=== PATIENT | female | born 1995 | race Caucasian/White ===

== ENCOUNTER 2016-03-10 09:08 | Outpatient (CLI) | payer BC | END 2016-03-10 09:09 | disposition home or self-care (01) | DX: Z00.00 Encounter for general adult medical examination without abnormal findings (principal) ==

== ENCOUNTER 2017-03-16 08:00 | Outpatient (CLI) | payer BC ==
[2017-03-16 17:47] LABS: BASOPHILS # (AUTO) 0.1 10^3/uL (0.0-0.1); BASOPHILS % (AUTO) 0.8 %; EOSINOPHILS # (AUTO) 0.1 10^3/uL (0.0-0.7); EOSINOPHILS % (AUTO) 2.2 %; HGB - HEMOGLOBIN 13.6 g/dL (12.0-16.0); LYMPHOCYTES # (AUTO) 1.4 10^3/uL (1.5-3.5); LYMPHOCYTES % (AUTO) 22.2 %; MEAN CORPUSCULAR HEMOGLOBIN 31.5 pg (27.0-31.0); MEAN CORPUSCULAR HGB CONC 33.6 g/dL (32.0-36.0); MEAN CORPUSCULAR VOLUME 93.8 fL (81.0-99.0); MEAN PLATELET VOLUME 8.7 fL (7.9-10.8); MONOCYTES # (AUTO) 0.7 10^3/uL (0.0-1.0); MONOCYTES % (AUTO) 11.1 %; NEUTROPHILS # (AUTO) 4.1 10^3/uL (1.5-6.6); NEUTROPHILS % (AUTO) 63.7 %; PLT - PLATELET COUNT 197 10^3/uL (130-450); RED BLOOD COUNT 4.31 10^6/uL (4.20-5.40); RED CELL DISTRIBUTION WIDTH 12.6 % (12.0-15.0); WHITE BLOOD COUNT 6.5 x10^3/uL (4.8-10.8)
[2017-03-16 18:09] LABS: ALBUMIN 4.3 g/dL (3.2-5.5); ALBUMIN/GLOBULIN RATIO 1.3 (1.0-2.2); ALKALINE PHOSPHATASE 41 IU/L (42-121); ALT ALANINE AMINOTRANSFERASE 15 IU/L (10-60); AST ASPARTATE AMINOTRANSFERASE 21 IU/L (10-42); BILIRUBIN,TOTAL 0.5 mg/dL (0.2-1.0); BUN - BLOOD UREA NITROGEN 16 mg/dL (6-20); CALCIUM 9.1 mg/dL (8.5-10.3); CARBON DIOXIDE - CO2 26 mmol/L (21-32); CHLORIDE 102 mmol/L (101-111); CHOLESTEROL 219 mg/dL; CREATININE 0.5 mg/dL (0.4-1.0); GFR - MDRD 152 (>89); GLUCOSE 69 mg/dL (70-100); HDL CHOLESTEROL 72 mg/dL; LDL CHOLESTEROL,CALCULATED 132 mg/dL; LDL/HDL RATIO 1.8 (<4.4); SODIUM 137 mmol/L (135-145); TOTAL PROTEIN 7.7 g/dL (6.7-8.2); VLDL CHOLESTEROL 15 mg/dL
== END 2017-03-16 08:01 ==
LOC: LAB.R 08:00
PROVIDERS: ATTEND Physician Assistant Medical
DX: Z00.00 Encounter for general adult medical examination without abnormal findings (principal)
CPT/HCPCS: 80053; 80061; 84443; 85025

== ENCOUNTER 2018-06-27 15:32 | Outpatient (CLI) | payer BC ==
--- NOTE | 2018-06-28 08:25 | Ultrasound Report ---
Reason: PELVIC PAIN Procedure Date: 06/27/2018 Accession Number: [id number] / [id number] Procedure: US - Pelvic w/Transvaginal CPT Code: FULL RESULT: EXAM: PELVIC ULTRASOUND EXAM DATE: 06/27/2018 03:38 PM. CLINICAL HISTORY: Pain. COMPARISON: PELV 08/01/2007 2:13 PM. TECHNIQUE: Real-time transabdominal pelvic scan performed to identify the uterus and adnexa and as an overview of other pelvic structures, followed by transvaginal scan to provide greater detail of the uterus and adnexa, with static image documentation. FINDINGS: Uterus: 5.9 x 2.2 x 3.8 cm, volume 25.8 cc. Anteverted position. Normal overall size and echotexture. Masses: None. Endometrium: 2.6 mm. Normal. Cervix: Unremarkable. Right Ovary: 2.7 x 1.6 x 2.7 cm, volume 6.1 cc. Normal echotexture and blood flow. Left Ovary: 2.1 x 1.5 x 2.6 cm, volume 4.3 cc. Normal echotexture and blood flow. Free Fluid: None. Other: None. IMPRESSION: Normal pelvic ultrasound. RADIA
== END 2018-06-27 15:33 | disposition home or self-care (01) ==
LOC: DI 15:32
PROVIDERS: ATTEND Nurse Practitioner Obstetrics & Gynecology
DX: R10.2 Pelvic and perineal pain (principal)
CPT/HCPCS: 76830; 76856

== ENCOUNTER 2018-07-02 08:00 | Outpatient (CLI) | payer BC ==
[2018-07-02 12:45] LABS: BASOPHILS # (AUTO) 0.1 10^3/uL (0.0-0.1); BASOPHILS % (AUTO) 1.2 %; EOSINOPHILS # (AUTO) 0.1 10^3/uL (0.0-0.7); EOSINOPHILS % (AUTO) 1.6 %; LYMPHOCYTES # (AUTO) 1.6 10^3/uL (1.5-3.5); LYMPHOCYTES % (AUTO) 33.5 %; MEAN CORPUSCULAR HEMOGLOBIN 31.9 pg (27.0-31.0); MEAN CORPUSCULAR HGB CONC 33.7 g/dL (32.0-36.0); MEAN CORPUSCULAR VOLUME 94.6 fL (81.0-99.0); MEAN PLATELET VOLUME 8.2 fL (7.9-10.8); MONOCYTES # (AUTO) 0.4 10^3/uL (0.0-1.0); MONOCYTES % (AUTO) 7.4 %; NEUTROPHILS # (AUTO) 2.7 10^3/uL (1.5-6.6); NEUTROPHILS % (AUTO) 56.3 %; PLT - PLATELET COUNT 224 10^3/uL (130-450); RED BLOOD COUNT 4.38 10^6/uL (4.20-5.40); RED CELL DISTRIBUTION WIDTH 12.5 % (12.0-15.0); WHITE BLOOD COUNT 4.8 x10^3/uL (4.8-10.8)
[2018-07-02 14:12] LABS: ALBUMIN 4.7 g/dL (3.2-5.5); ALBUMIN/GLOBULIN RATIO 1.6 (1.0-2.2); BILIRUBIN,TOTAL 0.8 mg/dL (0.2-1.0); CALCIUM 9.7 mg/dL (8.5-10.3); CREATININE 0.6 mg/dL (0.4-1.0); TOTAL PROTEIN 7.7 g/dL (6.7-8.2)
[2018-07-02 14:43] LABS: HB2 TOTAL 15.3 g/dL; HEMOGLOBIN A1C 0.39 g/dL; HEMOGLOBIN A1C % 4.5 % (4.6-6.2)
== END 2018-07-02 23:59 | disposition home or self-care (01) ==
LOC: LAB.WCP 08:00
PROVIDERS: ATTEND Physician Assistant
DX: R53.83 Other fatigue (principal); B37.3 Candidiasis of vulva and vagina
CPT/HCPCS: 36415; 80053; 83036; 84443; 85025

== ENCOUNTER 2018-07-11 15:05 | Outpatient (CLI) | payer BC | END 2018-07-11 23:59 | disposition home or self-care (01) | LOC: LAB.R 15:05 | PROVIDERS: ATTEND Obstetrics & Gynecology | DX: A56.09 Other chlamydial infection of lower genitourinary tract (principal) | CPT/HCPCS: 87491; 87591 ==

== ENCOUNTER 2019-03-27 08:00 | Outpatient (CLI) | payer SELFPAY ==
[2019-03-27 22:09] LABS: TRICHOMONAS VAGINALIS DNA NEGATIVE (NEGATIVE)
== END 2019-03-27 23:59 | disposition home or self-care (01) ==
LOC: LAB.R 08:00
PROVIDERS: ATTEND Nurse Practitioner Obstetrics & Gynecology
DX: Z11.3 Encounter for screening for infections with a predominantly sexual mode of transmission (principal)
CPT/HCPCS: 87491; 87591; 87661

== ENCOUNTER 2020-06-04 10:37 | Outpatient (CLI) | payer OTHER ==
[2020-06-09 11:30] LABS: CHLAMYDIA TRACHOMATIS DNA NEGATIVE (NEGATIVE); NEISSERIA GONORRHOEAE DNA NEGATIVE (NEGATIVE); TRICHOMONAS VAGINALIS DNA NEGATIVE (NEGATIVE)
== END 2020-06-04 23:59 | disposition home or self-care (01) ==
LOC: LAB.WCP 10:37
PROVIDERS: ATTEND Physician Assistant Medical
DX: Z20.2 Contact with and (suspected) exposure to infections with a predominantly sexual mode of transmission (principal)
CPT/HCPCS: 87491; 87591; 87661

== ENCOUNTER 2022-02-01 08:00 | Outpatient (CLI) | payer BC, OTHER ==
[2022-02-01 12:19] LABS: BILIRUBIN,URINE NEGATIVE (NEGATIVE); GLUCOSE, URINE (UA) NEGATIVE (NEGATIVE); KETONES,URINE (UA) NEGATIVE (NEGATIVE); LEUKOCYTE ESTERASE, URINE NEGATIVE (NEGATIVE); NITRITE,URINE NEGATIVE (NEGATIVE); OCCULT BLOOD,URINE NEGATIVE (NEGATIVE); PH,URINE 6.5 PH (5.0-7.5); PROTEIN,URINE NEGATIVE (NEGATIVE); UROBILINOGEN,URINE 0.2 (NORMAL) E.U./dL (NORMAL)
[2022-02-01 12:22] LABS: CLARITY,URINE CLEAR (CLEAR)
[2022-02-01 12:34] LABS: BACTERIA,URINE Few /HPF (None Seen); CRYSTALS,URINE 3-5 Calcium Oxalate /LPF; RBC,URINE None Seen /HPF (0-5); SQUAMOUS EPITHELIAL CELL,UR MOD Squamous (<= Few); WBC,URINE 0-3 /HPF (0-5)
== END 2022-02-01 23:59 | disposition home or self-care (01) ==
LOC: LAB.WC 08:00
PROVIDERS: ATTEND Nurse Practitioner
DX: Z34.90 Encounter for supervision of normal pregnancy, unspecified, unspecified trimester (principal)
CPT/HCPCS: 81001; 87086

== ENCOUNTER 2022-02-14 18:13 | Outpatient (CLI) | payer BC ==
--- NOTE | 2022-02-15 14:31 | Ultrasound Report ---
PROCEDURE: OB First Trimester w/TV INDICATIONS: POSITIVE TEST OUTSIDE/PRIOR DATING DATA: Last menstrual period (LMP): 02/14/2022. LMP-based estimated date of delivery (CHARITY): 09/23/2022. First dating scan (date and location): 02/14/2022. Estimated date of delivery (CHARITY) from first dating scan: 09/27/2022. The below data below was generated using the ultrasound CHARITY of 09/27/2022 TECHNIQUE: Real-time scanning was performed of the fetus and maternal pelvic organs, with image documentation. Endovaginal scanning was also performed to better visualize the fetus and maternal ovaries. COMPARISON: None. FINDINGS: Gestational sac in the uterine fundus containing a fetus with crown-rump length of 1.5 cm; gestational age estimated seven weeks six days. heart rate 173 bpm. Ovaries normal. Left corpu s luteum cyst noted. IMPRESSION: Sheikh intrauterine with estimated gestational age 7 weeks 6 days. Reviewed by: Coy Booth MD on 02/15/2022 2:29 PM PST Approved by: Coy Booth MD on 02/15/2022 2:29 PM PST Station ID: [id number]
== END 2022-02-14 18:14 | disposition home or self-care (01) ==
LOC: DI 18:13
PROVIDERS: ATTEND Nurse Practitioner
DX: Z34.91 Encounter for supervision of normal pregnancy, unspecified, first trimester (principal)

== ENCOUNTER 2022-03-03 08:00 | Outpatient (CLI) | payer BC ==
[2022-03-04 17:24] LABS: CHLAMYDIA TRACHOMATIS DNA NEGATIVE (NEGATIVE); NEISSERIA GONORRHOEAE DNA NEGATIVE (NEGATIVE); TRICHOMONAS VAGINALIS DNA NEGATIVE (NEGATIVE)
== END 2022-03-03 23:59 | disposition home or self-care (01) ==
LOC: LAB.WC 08:00
PROVIDERS: ATTEND Obstetrics & Gynecology
DX: Z11.3 Encounter for screening for infections with a predominantly sexual mode of transmission (principal)
CPT/HCPCS: 87491; 87591; 87661

== ENCOUNTER 2022-03-04 12:55 | Outpatient (CLI) | payer BC ==
[2022-03-04 13:11] LABS: BASOPHILS % (AUTO) 0.2 %; EOSINOPHILS # (AUTO) 0.1 10^3/uL (0.0-0.7); EOSINOPHILS % (AUTO) 0.5 %; HCT - HEMATOCRIT 36.5 % (37.0-47.0); HGB - HEMOGLOBIN 12.4 g/dL (12.0-16.0); LYMPHOCYTES # (AUTO) 1.9 10^3/uL (1.5-3.5); LYMPHOCYTES % (AUTO) 15.9 %; MEAN CORPUSCULAR HEMOGLOBIN 31.2 pg (27.0-31.0); MEAN CORPUSCULAR VOLUME 91.9 fL (81.0-99.0); MONOCYTES # (AUTO) 0.6 10^3/uL (0.0-1.0); MONOCYTES % (AUTO) 5.1 %; NEUTROPHILS # (AUTO) 9.3 10^3/uL (1.5-6.6); PLT - PLATELET COUNT 203 10^3/uL (130-450); RED BLOOD COUNT 3.97 10^6/uL (4.20-5.40); RED CELL DISTRIBUTION WIDTH 12.1 % (12.0-15.0); WHITE BLOOD COUNT 11.9 x10^3/uL (4.8-10.8)
[2022-03-05 06:09] LABS: RPR Non Reactive (Non Reactive)
[2022-03-05 07:10] LABS: HBsAG SCREEN Negative (Negative); HIV SCREEN 4TH GENERATION Non Reactive (Non Reactive)
[2022-03-05 08:10] LABS: HCV AB <0.1 s/co ratio (0.0-0.9); VARICELLA-ZOSTER AB IGG 1297 index (Immune >165)
== END 2022-03-04 12:56 | disposition home or self-care (01) ==
LOC: LAB 12:55
PROVIDERS: ATTEND Nurse Practitioner
DX: Z34.90 Encounter for supervision of normal pregnancy, unspecified, unspecified trimester (principal)
CPT/HCPCS: 36415; 85025; 86592; 86762; 86787; 86803; 86850; 86900; 86901; 87340; 87389

== ENCOUNTER 2022-03-28 09:57 | Outpatient (CLI) | payer BC | END 2022-03-28 09:58 | disposition home or self-care (01) | LOC: LAB 09:57 | PROVIDERS: ATTEND Obstetrics & Gynecology | DX: Z53.9 Procedure and treatment not carried out, unspecified reason (principal) ==

== ENCOUNTER 2022-05-11 18:48 | Outpatient (CLI) | payer BC ==
--- NOTE | 2022-05-12 12:21 | Ultrasound Report ---
PROCEDURE: OB Detailed Eval INDICATIONS: SUPERVISION OF NORMAL OUTSIDE/PRIOR DATING DATA: Last menstrual period (LMP): 12/17/2021. LMP-based estimated date of delivery (CHARITY): 09/23/2022. First dating scan (date and location): 02/14/2022. Estimated date of delivery (CHARITY) from first dating scan: 09/27/2022. The below data below was generated using the ultrasound CHARITY of 09/27/2022 TECHNIQUE: Real-time scanning was performed of the fetus, with image documentation and biometric measurements. Endovaginal scanning: Not performed COMPARISON: 02/14/2022 FINDINGS: General: A single living intrauterine gestation is present. Presentation: Vertex Placenta: Placental position is posterior, without previa. There is a marginal cord insertion measu ring 1.5 cm from the superior edge of the placenta. Additionally, there is a small succenturiate lobe measuring 3.7 x 1.1 x 3.5 cm along the anterior fundal wall. Amniotic fluid index: 14.9 cm, largest pocket is 4.9 cm. heart rate: 157 beats per minute. Maternal cervical canal: Closed and 4.4 cm long; normal length is 2.5 cm or more. biometrics: Biparietal diameter: 4.9 cm, 20 weeks, 6 days Head circumference: 17.6 cm, 20 weeks, 1 day Abdominal circumference: 14.9 cm, 20 weeks, 1 day Femur length: 3.2 cm, 20 weeks, 0 days Estimated gestational age from initial scan: 20 weeks, 1 day. Composite gestational age from present scan: 20 weeks, 2 days Estimated weight and percentile: 333 g, 44th percentile Measurement variability in biometric dating: +/- 10 days from 12-20 weeks gestation, +/- 2 weeks from 20-30 weeks gestation, +/- 3 weeks at 30 weeks gestation or later. Anatomic survey: Neuro: Given the position, intracranial structures are not well seen. Nuchal skin fold: Nuchal region is not well measured. Face: Suboptimal visualization of the facial features. Spine: No evidence for spina bifida. Heart: 4-chambered heart is present, with normal ventricular outflow tracts. Diaphragm: Diaphragm is intact. Stomach: Left-sided stomach is present. Kidneys: No hydronephrosis. Normal is less than 5 mm in 2nd trimester, less than 7 mm in 3rd trimester. Cord: 3 vessel cord has orthotopic insertion. Bladder: Normal in size. Extremities: All 4 extremities are visualized. IMPRESSION: 1. Single living intrauterine with appropriate and symmetric growth. 2. Intracranial structures and facial features are not well seen due to position. Follow-up in one week for reevaluation of these structures is recommended. 3. Small anterior fundal succenturiate lobe, and a mainly posterior placenta with a marginal cord ins ertion superiorly. Reviewed by: Zelda Barrera MD on 05/12/2022 12:20 PM PDT Approved by: Zelda Barrera MD on 05/12/2022 12:20 PM PDT Station ID: [id number]
== END 2022-05-11 18:49 | disposition home or self-care (01) ==
LOC: DI 18:48
PROVIDERS: ATTEND Nurse Practitioner
DX: Z34.92 Encounter for supervision of normal pregnancy, unspecified, second trimester (principal); Z36.89 Encounter for other specified antenatal screening

== ENCOUNTER 2022-05-23 09:50 | Outpatient (CLI) | payer BC ==
[2022-05-23 10:19] LABS: ALBUMIN 3.8 g/dL (3.2-5.5); ALBUMIN/GLOBULIN RATIO 1.3 (1.0-2.2); BILIRUBIN,TOTAL 0.4 mg/dL (0.2-1.0); CALCIUM 9.1 mg/dL (8.5-10.3); CREATININE 0.4 mg/dL (0.4-1.0); POTASSIUM 3.4 mmol/L (3.5-5.0); TOTAL PROTEIN 6.7 g/dL (6.7-8.2); URIC ACID 4.7 mg/dL (2.6-7.2)
[2022-05-23 10:20] LABS: CREATININE,URINE 44.7 mg/dL; PROTEIN/CREATININE RATIO,URINE 0.1 (<=0.2)
== END 2022-05-23 09:51 | disposition home or self-care (01) ==
LOC: LAB 09:50
PROVIDERS: ATTEND Obstetrics & Gynecology
DX: O16.9 Unspecified maternal hypertension, unspecified trimester (principal)
CPT/HCPCS: 36415; 80053; 82570; 84156; 84550

== ENCOUNTER 2022-06-01 11:18 | Outpatient (CLI) | payer BC ==
--- NOTE | 2022-06-01 16:51 | Ultrasound Report ---
PROCEDURE: OB F/U or Repeat INDICATIONS: SUPERVISION OF OUTSIDE/PRIOR DATING DATA: Last menstrual period (LMP): 12/17/2021. LMP-based estimated date of delivery (CHARITY): 09/23/2022. First dating scan (date and location): 02/14/2022. Estimated date of delivery (CHARITY) from first dating scan: 09/27/2022. TECHNIQUE: Real-time scanning was performed of the fetus, with image documentation and biometric measurements. Endovaginal scanning: No COMPARISON: 05/11/2022 FINDINGS: General: A single living intrauterine gestation is present. Presentation: Breech Placenta: Placental position is fundal, without previa. Amniotic fluid index: 11.6 cm, 15th percentile for gestational age. heart rate: 167 beats per minute. Maternal cervical canal: 4.3 cm long; normal length is 2.5 cm or more. Composite gestational age from present scan: 23 weeks 1 day Measurement variability in biometric dating: +/- 10 days from 12-20 weeks gestation, +/- 2 weeks from 20-30 weeks gestation, +/- 3 weeks at 30 weeks gestation or more. Other: Current survey of anatomy includes normal ventricle/CORD plexus, cisterna magna/cerebell um, face/lips/orbits, chest/diaphragm, stomach/abdomen, bilateral renal regions, and urinary bladder/ pelvis. IMPRESSION: 1. Single living intrauterine gestation. 2. Normal limited survey of anatomy as above. Reviewed by: Nyla Watt MD on 06/01/2022 4:50 PM PDT Approved by: Nyla Watt MD on 06/01/2022 4:50 PM PDT Station ID: [id number]
== END 2022-06-01 11:19 | disposition home or self-care (01) ==
LOC: DI 11:18
PROVIDERS: ATTEND Nurse Practitioner
DX: Z36.89 Encounter for other specified antenatal screening (principal); Z34.92 Encounter for supervision of normal pregnancy, unspecified, second trimester

== ENCOUNTER 2022-06-16 10:56 | Outpatient (CLI) | payer BC | END 2022-06-16 10:57 | disposition home or self-care (01) | LOC: LAB 10:56 | PROVIDERS: ATTEND Nurse Practitioner | DX: Z34.90 Encounter for supervision of normal pregnancy, unspecified, unspecified trimester (principal); Z36.89 Encounter for other specified antenatal screening | CPT/HCPCS: 36415; 82950 ==

== ENCOUNTER 2022-08-01 10:21 | Outpatient (CLI) | payer BC ==
--- NOTE | 2022-08-01 15:15 | Ultrasound Report ---
PROCEDURE: OB F/U or Repeat INDICATIONS: HYPERTENSION IN OUTSIDE/PRIOR DATING DATA: Last menstrual period (LMP): 12/17/2021. LMP-based estimated date of delivery (CHARITY): 09/15/2022. First dating scan (date and location): 02/14/2022. Estimated date of delivery (CHARITY) from first dating scan: 09/27/2022. The below data below was generated using the sonographic CHARITY of 09/27/2022 TECHNIQUE: Real-time scanning was performed of the fetus, with image documentation and biometric measurements. Endovaginal scanning: COMPARISON: 06/01/2022 FINDINGS: General: A single living intrauterine gestation is present. Presentation: Cephalic Placenta: Placental position is posterior, without previa. Amniotic fluid index: 10.3 cm, largest pocket is 3.2 cm, normal for gestational age. heart rate: 160 beats per minute. Maternal cervical canal: 3.5 cm long; normal length is 2.5 cm or more. biometrics: Biparietal diameter: 8.2 cm, 32 weeks 6 days Head circumference: 29.3 cm, 32 weeks 2 days Abdominal circumference: 26.9 cm, 31 weeks 0 days Femur length: 6.1 cm, 31 weeks 4 days Estimated gestational age from initial scan: 31 weeks 6 days. Composite gestational age from present scan: 32 weeks 0 days Estimated weight and percentile: 1767 g, 26th percentile Measurement variability in biometric dating: +/- 10 days from 12-20 weeks gestation, +/- 2 weeks from 20-30 weeks gestation, +/- 3 weeks at 30 weeks gestation or more. Other: Not applicable. IMPRESSION: 1. Single live intrauterine with appropriate growth since the prior study. 2. Estimated weight at the 26th percentile. 3. Normal amniotic fluid volume. Reviewed by: Zelda Barrera MD on 08/01/2022 3:14 PM PDT Approved by: Zelda Barrera MD on 08/01/2022 3:14 PM PDT Station ID: [id number]
== END 2022-08-01 10:22 | disposition home or self-care (01) ==
LOC: DI 10:21
PROVIDERS: ATTEND Obstetrics & Gynecology
DX: O16.9 Unspecified maternal hypertension, unspecified trimester (principal); Z3A.32 32 weeks gestation of pregnancy

== ENCOUNTER 2022-08-04 08:57 | Outpatient (CLI) | payer BC ==
[2022-08-04 09:18] VITALS: BP 133/74
--- NOTE | 2022-08-04 09:58 | PROCEDURE REPORT ---
- HPI Vital Signs Temperature 98.2 F 08/04/22 09:15 Heart Rate 115 H 08/04/22 09:15 Respiratory Rate 17 08/04/22 09:15 Blood Pressure 133/74 H 08/04/22 09:15 O2 Saturation 100 08/04/22 09:15 Temperature 98.2 F 08/04/22 09:15 Heart Rate 115 H 08/04/22 09:15 Respiratory Rate 17 08/04/22 09:15 Blood Pressure 133/74 H 08/04/22 09:15 O2 Saturation 100 08/04/22 09:15 If not protocol: Oxygen Flow, liters/minute - Results and Plan Plan: Patient is a 27-year-old G1, P0 at 32 weeks 6 days gestation here for scheduled NST. NST Performed 08/04/2022 NST Read 08/04/2022 FHT: 150 bpm baseline, moderate variability, accelerations present, no decelerations. Reactive NST [place]: Quiescent Diagnosis 32 weeks gestation Chronic hypertension Continue with twice weekly NST.
== END 2022-08-04 09:45 | disposition home or self-care (01) ==
LOC: WFO 08:57 → FBP 08:59 → WFO 09:45
PROVIDERS: ATTEND Obstetrics & Gynecology
DX: O16.3 Unspecified maternal hypertension, third trimester (principal); Z3A.32 32 weeks gestation of pregnancy
CPT/HCPCS: 59025

== ENCOUNTER 2022-08-08 09:08 | Outpatient (CLI) | payer BC ==
[2022-08-08 09:20] VITALS: BP 138/82
--- NOTE | 2022-08-08 09:50 | PROCEDURE REPORT ---
- HPI Diagnosis/Indication for NST: Pre- Hypertension Vital Signs Temperature 97.7 F 08/08/22 09:16 Heart Rate 104 H 08/08/22 09:16 Respiratory Rate 20 08/08/22 09:16 Blood Pressure 138/82 H 08/08/22 09:16 Temperature 97.7 F 08/08/22 09:16 Heart Rate 104 H 08/08/22 09:16 Respiratory Rate 20 08/08/22 09:16 Blood Pressure 138/82 H 08/08/22 09:16 O2 Saturation If not protocol: Oxygen Flow, liters/minute - NST Procedure NST Procedure Start Time 09:04 Stop Time 09:42 - Results and Plan Plan: Patient is a 27-year-old G1, P0 at 33 weeks 3 days gestation here for scheduled NST. NST Performed 08/08/2022 NST Read 08/08/2022 FHT: 145 bpm baseline, moderate variability, accelerations present, no decelerations. Reactive NST [place]: Quiescent Diagnosis 33 weeks gestation Chronic hypertension Continue with twice weekly NST.
== END 2022-08-08 09:54 | disposition home or self-care (01) ==
LOC: WFO 09:08 → FBP 09:10 → WFO 09:54
PROVIDERS: ATTEND Nurse Practitioner
DX: O10.913 Unspecified pre-existing hypertension complicating pregnancy, third trimester (principal); Z3A.33 33 weeks gestation of pregnancy
CPT/HCPCS: 59025; 99213

== ENCOUNTER 2022-08-09 19:20 | Outpatient (CLI) | payer BC ==
--- NOTE | 2022-08-10 13:00 | Ultrasound Report ---
PROCEDURE: OB Biophysical Profile INDICATIONS: HYPERTENSION OUTSIDE/PRIOR DATING DATA: Last menstrual period (LMP): 12/17/2021. LMP-based estimated date of delivery (CHARITY): 09/23/2022. First dating scan (date and location): 02/14/2022. Estimated date of delivery (CHARITY) from first dating scan: 09/27/2022. The below data below was generated using the ultrasound CHARITY of 09/27/2022 TECHNIQUE: Real-time scanning was performed of the fetus, with image documentation. Biophysical pro file was also obtained. COMPARISON: OB ultrasound 08/01/2022. FINDINGS: General: A single living intrauterine gestation is present. Presentation: Cephalic Placenta: Placental position is posterior, without previa. Amniotic fluid index: 13.2 cm, normal for gestational age. Largest pocket 4.1 cm. heart rate: 150 beats per minute. Maternal cervical canal: Not well seen. Estimated gestational age from initial scan: 33 weeks 0 days Measurement variability in biometric dating: +/- 10 days from 12-20 weeks gestation, +/- 2 weeks from 20-30 weeks gestation, +/- 3 weeks at 30 weeks gestation or later. Biophysical profile: Tone: 2 points. Movement: 2 points. Respiration: 2 points. Largest pocket of fluid: 2 points. Umbilical artery Doppler: S/D ratios 2.73; 2.92; 2.98. Preserved diastolic flow. Questionable sludge or stones in the gallbladder. IMPRESSION: 1. Sheikh living intrauterine at 33 weeks 0 days based on prior dating. Cephalic positio n. 2. Normal placenta and amniotic fluid. 3. Normal biophysical profile. Score 8 out of 8. Umbilical artery Doppler is within normal limits. 4. Questionable sludge or stones in the gallbladder. Reviewed by: Chevy Gutierrez MD on 08/10/2022 12:58 PM PDT Approved by: Chevy Gutierrez MD on 08/10/2022 12:58 PM PDT Station ID: [id number]
== END 2022-08-09 19:21 | disposition home or self-care (01) ==
LOC: DI 19:20
PROVIDERS: ATTEND Nurse Practitioner
DX: O10.913 Unspecified pre-existing hypertension complicating pregnancy, third trimester (principal); Z3A.33 33 weeks gestation of pregnancy

== ENCOUNTER 2022-08-11 09:00 | Outpatient (CLI) | payer BC ==
[2022-08-11 09:15] VITALS: BP 128/64
--- NOTE | 2022-08-11 09:19 | PROCEDURE REPORT ---
- HPI Vital Signs Temperature 98.2 F 08/11/22 09:05 Temperature 98.2 F 08/11/22 09:10 Heart Rate 112 H 08/11/22 09:10 Respiratory Rate 17 08/11/22 09:10 Blood Pressure 128/64 08/11/22 09:10 O2 Saturation 100 08/11/22 09:10 If not protocol: Oxygen Flow, liters/minute - NST Procedure NST Procedure Start Time 09:10 Stop Time 09:39 - Results and Plan Plan: Patient is a 27-year-old G1, P0 at 33 weeks 6 days gestation here for scheduled NST. NST Performed 08/11/2022 NST Read 08/11/2022 FHT: 145 bpm baseline, moderate variability, accelerations present, no decelerations. Reactive NST [place]: Quiescent Diagnosis 33 weeks gestation chronic hypertension Continue with twice weekly NST.
== END 2022-08-11 10:10 | disposition home or self-care (01) ==
LOC: WFO 09:00 → FBP 09:03 → WFO 10:10
PROVIDERS: ATTEND Obstetrics & Gynecology
DX: O16.3 Unspecified maternal hypertension, third trimester (principal); Z3A.33 33 weeks gestation of pregnancy
CPT/HCPCS: 59025

== ENCOUNTER 2022-08-15 10:30 | Outpatient (CLI) | payer BC ==
[2022-08-15 10:51] VITALS: BP 124/76
--- NOTE | 2022-08-15 11:14 | PROCEDURE REPORT ---
- HPI Diagnosis/Indication for NST: Gestational Hypertension Vital Signs Temperature 98.1 F 08/15/22 10:46 Heart Rate 117 H 08/15/22 10:46 Respiratory Rate 17 08/15/22 10:46 Blood Pressure 124/76 08/15/22 10:46 O2 Saturation 100 08/15/22 10:46 Temperature 98.1 F 08/15/22 10:49 Heart Rate 117 H 08/15/22 10:46 Respiratory Rate 17 08/15/22 10:46 Blood Pressure 124/76 08/15/22 10:46 O2 Saturation 100 08/15/22 10:46 If not protocol: Oxygen Flow, liters/minute - NST Procedure NST Procedure Start Time 09:10 Stop Time 10:05 34+ weeks NST for gestational hypertension 150, moderate variability, +accels, no decels Reactive NST - Results and Plan Plan: Reactive NST
== END 2022-08-15 11:15 | disposition home or self-care (01) ==
LOC: WFO 10:30 → FBP 10:33 → WFO 11:15
PROVIDERS: ATTEND Obstetrics & Gynecology Obstetrics
DX: O13.3 Gestational [pregnancy-induced] hypertension without significant proteinuria, third trimester (principal); Z3A.34 34 weeks gestation of pregnancy
CPT/HCPCS: 59025

== ENCOUNTER 2022-08-18 08:05 | Outpatient (CLI) | payer BC ==
[2022-08-18 08:22] VITALS: BP 121/69
--- NOTE | 2022-08-18 09:31 | PROCEDURE REPORT ---
- HPI Current EDU 09/23/22 Gestation 34 Weeks and 6 Days 1 Para 0 Vital Signs Temperature 98.2 F 08/18/22 08:16 Heart Rate 95 08/18/22 08:16 Respiratory Rate 16 08/18/22 08:16 Blood Pressure 121/69 08/18/22 08:16 O2 Saturation 100 08/18/22 08:16 Temperature 98.2 F 08/18/22 08:18 Heart Rate 95 08/18/22 08:16 Respiratory Rate 16 08/18/22 08:16 Blood Pressure 121/69 08/18/22 08:16 O2 Saturation 100 08/18/22 08:16 If not protocol: Oxygen Flow, liters/minute - NST Procedure NST Procedure Start Date 08/18/22 Start Time 08:12 Stop Time 08:45 Vibroacoustic Stimulation Used No Patient States Movement Yes - Results and Plan Plan: Patient is a 27-year-old G1, P0 at 34 weeks 6 days gestation here for scheduled NST. NST Performed 08/18/2022 NST Read 08/18/2022 FHT: 145 bpm baseline, moderate variability, accelerations present, no decelerations. Reactive NST [place]: Quiescent Diagnosis 34 weeks gestation Chronic hypertension Continue with twice-weekly NST.
== END 2022-08-18 08:50 | disposition home or self-care (01) ==
LOC: WFO 08:05 → FBP 08:07 → WFO 08:50
PROVIDERS: ATTEND Obstetrics & Gynecology
DX: O16.3 Unspecified maternal hypertension, third trimester (principal); Z3A.34 34 weeks gestation of pregnancy
CPT/HCPCS: 59025

== ENCOUNTER 2022-08-18 08:49 | Outpatient (CLI) | payer BC ==
--- NOTE | 2022-08-18 13:30 | Ultrasound Report ---
PROCEDURE: OB Biophysical Profile INDICATIONS: HYPERTENSION OUTSIDE/PRIOR DATING DATA: Last menstrual period (LMP): 12/17/2021. LMP-based estimated date of delivery (CHARITY): 09/15/2022. First dating scan (date and location): 02/14/2022. Estimated date of delivery (CHARITY) from first dating scan: 09/27/2022. TECHNIQUE: Real-time scanning was performed of the fetus, with image documentation. Biophysical pro file was also obtained. COMPARISON: 08/09/2022 FINDINGS: General: A single living intrauterine gestation is present. Presentation: Cephalic Placenta: Placental position is posterior, without previa. Amniotic fluid index: 10.2 cm, within normal limits for gestational age. heart rate: 153 beats per minute. Maternal cervical canal: 3.6 cm long; normal length is 2.5 cm or more. Estimated gestational age today is 34 weeks and 2 days. Biophysical profile: Tone: 2 points. Movement: 2 points. Respiration: 2 points. Largest pocket of fluid: 2 points. Umbilical artery Doppler: Within normal limits, measuring under 3 SD ratio. Hyperechoic focus in the gallbladder again seen. IMPRESSION: Sheikh at 34 weeks and 2 days. Normal BPP. Normal umbilical artery Doppler. Normal TALAT. Hyperechoic focus in the gallbladder again seen, consider follow-up. Reviewed by: Jose Marques MD on 08/18/2022 1:29 PM PDT Approved by: Jose Marques MD on 08/18/2022 1:29 PM PDT Station ID: [id number]
== END 2022-08-18 08:50 | disposition home or self-care (01) ==
LOC: DI 08:49
PROVIDERS: ATTEND Nurse Practitioner
DX: O16.3 Unspecified maternal hypertension, third trimester (principal); Z3A.34 34 weeks gestation of pregnancy

== ENCOUNTER 2022-08-22 08:00 | Outpatient (CLI) | payer BC | END 2022-08-22 23:59 | disposition home or self-care (01) | LOC: LAB.WC 08:00 | PROVIDERS: ATTEND Obstetrics & Gynecology | DX: Z36.85 Encounter for antenatal screening for Streptococcus B (principal) | CPT/HCPCS: 87797 ==

== ENCOUNTER 2022-08-22 09:53 | Outpatient (CLI) | payer BC ==
[2022-08-22 10:13] VITALS: BP 128/74
--- NOTE | 2022-08-22 10:59 | PROCEDURE REPORT ---
- HPI Diagnosis/Indication for NST: Pre- Hypertension Current EDU 09/23/22 Gestation 35 Weeks and 3 Days 1 Para 0 Vital Signs Temperature 97.9 F 08/22/22 10:01 Heart Rate 106 H 08/22/22 10:01 Respiratory Rate 18 08/22/22 10:01 Blood Pressure 128/74 08/22/22 10:01 Temperature 97.9 F 08/22/22 10:01 Heart Rate 106 H 08/22/22 10:01 Respiratory Rate 18 08/22/22 10:01 Blood Pressure 128/74 08/22/22 10:01 O2 Saturation If not protocol: Oxygen Flow, liters/minute - NST Procedure NST Procedure Start Date 08/22/22 Start Time 10:00 Stop Time 11:15 Patient States Movement Yes EFM: 150s, moderate variability, positive 15x15 accelerations, no decelerations [place]: no contractions NST reactive/Cat 1 Performed and read 08/22/22 - Results and Plan Findings/Impression: 27yo at 35.4w presenting for scheduled NST for chronic hypertension - CHTN controlled with nifedipine - NST reactive - Follow up as scheduled
== END 2022-08-22 10:45 | disposition home or self-care (01) ==
LOC: WFO 09:53 → FBP 09:55 → WFO 10:45
PROVIDERS: ATTEND Obstetrics & Gynecology
DX: O10.913 Unspecified pre-existing hypertension complicating pregnancy, third trimester (principal); Z3A.35 35 weeks gestation of pregnancy; Z79.899 Other long term (current) drug therapy
CPT/HCPCS: 59025

== ENCOUNTER 2022-08-25 08:02 | Outpatient (CLI) | payer BC ==
[2022-08-25 08:21] VITALS: BP 120/67
--- NOTE | 2022-08-26 08:21 | PROCEDURE REPORT ---
- HPI Diagnosis/Indication for NST: Other (Chronic hypertension) Current EDU 09/23/22 Gestation 35 Weeks and 6 Days 1 Para 0 Vital Signs Temperature 97.7 F 08/25/22 08:13 Heart Rate 100 08/25/22 08:13 Respiratory Rate 16 08/25/22 08:13 Blood Pressure 120/67 08/25/22 08:13 Temperature 97.7 F 08/25/22 08:13 Heart Rate 100 08/25/22 08:13 Respiratory Rate 16 08/25/22 08:13 Blood Pressure 120/67 08/25/22 08:13 O2 Saturation If not protocol: Oxygen Flow, liters/minute - NST Procedure NST Procedure Start Date 08/25/22 Start Time 08:11 Stop Time 08:37 Vibroacoustic Stimulation Used No Patient States Movement Yes EFM: 150s, moderate variability, positive 15x15 accelerations, no decelerations [place]: no contractions NST reactive/Cat 1 Performed and read 08/25/22 - Results and Plan Findings/Impression: 27yo at 36w presenting for scheduled NST for chronic hypertension - Controlled with nifedipine - NST reactive - Follow up as scheduled
== END 2022-08-25 08:40 | disposition home or self-care (01) ==
LOC: WFO 08:02 → FBP 08:07 → WFO 08:40
PROVIDERS: ATTEND Obstetrics & Gynecology
DX: O10.919 Unspecified pre-existing hypertension complicating pregnancy, unspecified trimester (principal); O35.9XX0 Maternal care for (suspected) fetal abnormality and damage, unspecified, not applicable or unspecified; Z3A.35 35 weeks gestation of pregnancy; Z79.899 Other long term (current) drug therapy
CPT/HCPCS: 59025

== ENCOUNTER 2022-08-25 08:42 | Outpatient (CLI) | payer BC ==
--- NOTE | 2022-08-25 17:06 | Ultrasound Report ---
PROCEDURE: OB Biophysical Profile INDICATIONS: HYPERTENSION OUTSIDE/PRIOR DATING DATA: Last menstrual period (LMP): 12/17/2021. LMP-based estimated date of delivery (CHARITY): 09/15/2022. First dating scan (date and location): 02/14/2022. Estimated date of delivery (CHARITY) from first dating scan: 09/27/2022. TECHNIQUE: Real-time scanning was performed of the fetus, with image documentation. Biophysical pro file was also obtained. Endovaginal scanning: Not performed. COMPARISON: OB ultrasound 08/18/2022. FINDINGS: General: A single living intrauterine gestation is present. Presentation: Cephalic Placenta: Placental position is posterior, without previa. Amniotic fluid index: 9.0 cm, 9th percentile for gestational age. Single deepest vertical fluid pocket is 3.6 cm. heart rate: 164 beats per minute. Maternal cervical canal: Not well visualized. Estimated gestational age from initial scan: 35 weeks 2 days. Biophysical profile: Tone: 2 points. Movement: 2 points. Respiration: 2 points. Largest pocket of fluid: 2 points. Umbilical artery Doppler: Systolic/diastolic ratio is 2.6 at the placental cord insertion, 2.7 at th e midportion, and 3.2 at the cord insertion. IMPRESSION: 1.Single live intrauterine . 2.Biophysical profile score 8 of 8. 3.Mildly elevated systolic/diastolic ratio of 3.2 at the cord insertion. Reviewed by: Neftali Ramos MD on 08/25/2022 5:05 PM PDT Approved by: Neftali Ramos MD on 08/25/2022 5:05 PM PDT Station ID: [id number]
== END 2022-08-25 08:43 | disposition home or self-care (01) ==
LOC: DI 08:42
PROVIDERS: ATTEND Nurse Practitioner
DX: O10.919 Unspecified pre-existing hypertension complicating pregnancy, unspecified trimester (principal); Z3A.00 Weeks of gestation of pregnancy not specified

== ENCOUNTER 2022-08-25 08:42 | Outpatient (CLI) | payer BC ==
--- NOTE | 2022-08-29 12:02 | Ultrasound Report ---
PROCEDURE: OB F/U or Repeat INDICATIONS: ABNORMALITY OUTSIDE/PRIOR DATING DATA: Last menstrual period (LMP): 12/17/2021. LMP-based estimated date of delivery (CHARITY): 09/15/2022. First dating scan (date and location): 02/14/2022. Estimated date of delivery (CHARITY) from first dating scan: 09/27/2022. TECHNIQUE: Real-time scanning was performed of the fetus, with image documentation. Biophysical profi le was also obtained. Endovaginal scanning: Not performed. All images for this exam associated with accession number [id number] COMPARISON: OB ultrasound 08/18/2022. FINDINGS: General: A single living intrauterine gestation is present. Presentation: Cephalic Placenta: Placental position is posterior, without previa. Amniotic fluid index: 9.0 cm, 9th percentile for gestational age. Single deepest vertical fluid pocket is 3.6 cm. heart rate: 164 beats per minute. Maternal cervical canal: Not well visualized. Estimated gestational age from initial scan: 35 weeks 2 days. Biophysical profile: Tone: 2 points. Movement: 2 points. Respiration: 2 points. Largest pocket of fluid: 2 points. Umbilical artery Doppler: Systolic/diastolic ratio is 2.6 at the placental cord insertion, 2.7 at the midportion, and 3.2 at the cord insertion. IMPRESSION: 1.Single live intrauterine . 2.Biophysical profile score 8 of 8. 3.Mildly elevated systolic/diastolic ratio of 3.2 at the cord insertion. Reviewed by: Neftali Ramos MD on 08/29/2022 12:01 PM PDT Approved by: Neftali Ramos MD on 08/29/2022 12:01 PM PDT Station ID: [id number]
== END 2022-08-25 08:43 | disposition home or self-care (01) ==
LOC: DI 08:42
PROVIDERS: ATTEND Nurse Practitioner
DX: O35.9XX0 Maternal care for (suspected) fetal abnormality and damage, unspecified, not applicable or unspecified (principal); Z3A.35 35 weeks gestation of pregnancy

== ENCOUNTER 2022-08-29 09:49 | Outpatient (CLI) | payer BC ==
[2022-08-29 10:13] VITALS: BP 114/72
--- NOTE | 2022-08-29 13:03 | PROCEDURE REPORT ---
- HPI Diagnosis/Indication for NST: Pre- Hypertension Current EDU 09/23/22 Gestation 36 Weeks and 3 Days 1 Para 0 Vital Signs Temperature 98.4 F 08/29/22 10:04 Heart Rate 99 08/29/22 10:04 Respiratory Rate 16 08/29/22 10:04 Blood Pressure 114/72 08/29/22 10:04 Temperature 98.4 F 08/29/22 10:40 Heart Rate 99 08/29/22 10:40 Respiratory Rate 16 08/29/22 10:40 Blood Pressure 114/72 08/29/22 10:40 O2 Saturation If not protocol: Oxygen Flow, liters/minute - NST Procedure NST Procedure Start Date 08/29/22 Start Time 09:57 Stop Time 10:35 Vibroacoustic Stimulation Used No Patient States Movement Yes NST with baseline 150. + acels. no decels. reactive. reviewed by me. - Results and Plan Findings/Impression: reactive NST Plan: continue care as scheduled.
== END 2022-08-29 10:40 | disposition home or self-care (01) ==
LOC: WFO 09:49 → FBP 09:54 → WFO 10:40
PROVIDERS: ATTEND Obstetrics & Gynecology
DX: O10.913 Unspecified pre-existing hypertension complicating pregnancy, third trimester (principal); Z3A.36 36 weeks gestation of pregnancy
CPT/HCPCS: 59025

== ENCOUNTER 2022-09-01 08:03 | Outpatient (CLI) | payer BC ==
[2022-09-01 08:29] VITALS: BP 113/62
--- NOTE | 2022-09-01 08:37 | PROCEDURE REPORT ---
- HPI Diagnosis/Indication for NST: Pre- Hypertension Current EDU 09/23/22 Gestation 36 Weeks and 6 Days 1 Para 0 Vital Signs Temperature 98.1 F 09/01/22 08:19 Heart Rate 90 09/01/22 08:19 Respiratory Rate 14 09/01/22 08:19 Blood Pressure 113/62 09/01/22 08:19 Temperature 98.1 F 09/01/22 08:19 Heart Rate 90 09/01/22 08:19 Respiratory Rate 14 09/01/22 08:19 Blood Pressure 113/62 09/01/22 08:19 O2 Saturation If not protocol: Oxygen Flow, liters/minute - NST Procedure NST Procedure Start Date 09/01/22 Start Time 08:15 Stop Time 10:35 Patient States Movement Yes - Results and Plan Plan: Patient is a 27-year-old G1, P0 at 36 weeks 6 days gestation here for scheduled NST. NST Performed 09/01/2022 NST Read 09/01/2022 FHT: 140 bpm baseline, moderate variability, accelerations present, no decelerations. Reactive NST [place]: Quiescent Diagnosis 36 weeks gestation Chronic hypertension Continue with twice-weekly NST.
== END 2022-09-01 09:05 | disposition home or self-care (01) ==
LOC: WFO 08:03 → FBP 08:09 → WFO 09:05
PROVIDERS: ATTEND Obstetrics & Gynecology
DX: O10.913 Unspecified pre-existing hypertension complicating pregnancy, third trimester (principal); Z3A.36 36 weeks gestation of pregnancy
CPT/HCPCS: 59025

== ENCOUNTER 2022-09-01 09:08 | Outpatient (CLI) | payer BC ==
--- NOTE | 2022-09-01 20:33 | Ultrasound Report ---
PROCEDURE: OB Biophysical Profile INDICATIONS: HYPERTENSION OUTSIDE/PRIOR DATING DATA: Last menstrual period (LMP): 12/17/2021. LMP-based estimated date of delivery (CHARITY): 09/23/2022. First dating scan (date and location): 02/14/2022. Estimated date of delivery (CHARITY) from first dating scan: 09/27/2022. The below data below was generated using the working CHARITY of 09/27/2022 TECHNIQUE: Real-time scanning was performed of the fetus, with image documentation and biometric renato surements. Biophysical profile was also obtained. COMPARISON: OB ultrasound, 08/25/2022. FINDINGS: General: A single living intrauterine gestation is present. Presentation: Cephalic Placenta: Placental position is posterior, without previa. Amniotic fluid index: 9.6 cm; largest pocket 3.6 cm. heart rate: 152 beats per minute. Maternal cervical canal: Not visualized. biometrics: Biparietal diameter: 36 weeks 2 days Head circumference: 35 weeks 6 days Abdominal circumference: 34 weeks 4 days Femur length: 35 weeks 0 day Estimated gestational age from initial scan: 36 weeks 2 days. Composite gestational age from present scan: 35 weeks 3 days Estimated weight and percentile: 2557 g; 19.2% Measurement variability in biometric dating: +/- 10 days from 12-20 weeks gestation, +/- 2 weeks from 20-30 weeks gestation, +/- 3 weeks at 30 weeks gestation or later. Biophysical profile: Tone: 2 points. Movement: 2 points. Respiration: 2 points. Largest pocket of fluid: 2 points. IMPRESSION: 1. A single living IUP with appropriate interval growth. 2. biophysical profile score 8 out of 8. Reviewed by: Gilmar Ham MD on 09/01/2022 8:32 PM PDT Approved by: Gilmar Ham MD on 09/01/2022 8:32 PM PDT Station ID: [id number]
--- NOTE | 2022-09-02 08:17 | Ultrasound Report ---
PROCEDURE: OB F/U or Repeat INDICATIONS: CHRONIC HTN OUTSIDE/PRIOR DATING DATA: Last menstrual period (LMP): 12/17/2021. LMP-based estimated date of delivery (CHARITY): 09/23/2022. First dating scan (date and location): 02/14/2022. Estimated date of delivery (CHARITY) from first dating scan: 09/27/2022. The below data below was generated using the working CHARITY of 09/27/2022 TECHNIQUE: Real-time scanning was performed of the fetus, with image documentation and biometric measurements. Endovaginal scanning: Not performed. COMPARISON: OB ultrasound, 08/25/2022. FINDINGS: General: A single living intrauterine gestation is present. Presentation: Cephalic Placenta: Placental position is posterior, without previa. Amniotic fluid index: 9.6 cm; largest pocket 3.6 cm. heart rate: 152 beats per minute. Maternal cervical canal: Not visualized. biometrics: Biparietal diameter: 36 weeks 2 days Head circumference: 35 weeks 6 days Abdominal circumference: 34 weeks 4 days Femur length: 35 weeks 0 day Estimated gestational age from initial scan: 36 weeks 2 days. Composite gestational age from present scan: 35 weeks 3 days Estimated weight and percentile: 2557 g; 19.2% Measurement variability in biometric dating: +/- 10 days from 12-20 weeks gestation, +/- 2 weeks from 20-30 weeks gestation, +/- 3 weeks at 30 weeks gestation or later. Biophysical profile: Tone: 2 points. Movement: 2 points. Respiration: 2 points. Largest pocket of fluid: 2 points. Cord Doppler ultrasound: S/D at the placental cord insertion: 2.35. S/D at the mid cord: 2.20. S/D at the cord insertion: 2.64. Normal values less than 3.49 (95th percentile) for 35 weeks gestational age. IMPRESSION: 1. A single living IUP with appropriate interval growth. 2. The estimated weight is 19.2% for gestational age. 3. TALAT 9.6 cm. Reviewed by: Gilmar Ham MD on 09/02/2022 8:16 AM PDT Approved by: Gilmar Ham MD on 09/02/2022 8:16 AM PDT Station ID: [id number]
== END 2022-09-01 09:09 | disposition home or self-care (01) ==
LOC: DI 09:08
PROVIDERS: ATTEND Nurse Practitioner
DX: O10.919 Unspecified pre-existing hypertension complicating pregnancy, unspecified trimester (principal); Z3A.35 35 weeks gestation of pregnancy

== ENCOUNTER 2022-09-08 08:02 | Outpatient (CLI) | payer BC ==
[2022-09-08 08:27] VITALS: BP 111/68
--- NOTE | 2022-09-08 08:52 | PROCEDURE REPORT ---
- HPI Current EDU 09/23/22 Gestation 37 Weeks and 6 Days 1 Para 0 Vital Signs Temperature 98.2 F 09/08/22 08:11 Heart Rate 99 09/08/22 08:11 Respiratory Rate 16 09/08/22 08:11 Blood Pressure 111/68 09/08/22 08:11 O2 Saturation 100 09/08/22 08:11 Temperature 98.2 F 09/08/22 08:15 Heart Rate 99 09/08/22 08:15 Respiratory Rate 16 09/08/22 08:15 Blood Pressure 111/68 09/08/22 08:15 O2 Saturation 100 09/08/22 08:11 If not protocol: Oxygen Flow, liters/minute - NST Procedure NST Procedure Start Date 09/08/22 Start Time 08:20 Stop Time 08:42 Vibroacoustic Stimulation Used No Patient States Movement Yes - Results and Plan Plan: Patient is a 27-year-old G1, P0 at 37 weeks 6 days gestation here for scheduled NST. NST Performed 09/08/2022 NST Read 09/08/2022 FHT: 145 bpm baseline, moderate variability, accelerations present, no decelerations. Reactive NST [place]: Quiescent Diagnosis 37 weeks gestation Chronic hypertension Continue with twice-weekly NST.
== END 2022-09-08 08:47 | disposition home or self-care (01) ==
LOC: WFO 08:02 → FBP 08:03 → WFO 08:47
PROVIDERS: ATTEND Obstetrics & Gynecology
DX: O16.9 Unspecified maternal hypertension, unspecified trimester (principal); Z3A.37 37 weeks gestation of pregnancy
CPT/HCPCS: 59025

== ENCOUNTER 2022-09-12 09:52 | Outpatient (CLI) | payer BC ==
[2022-09-12 10:14] VITALS: BP 109/66
--- NOTE | 2022-09-12 11:10 | PROCEDURE REPORT ---
- HPI Diagnosis/Indication for NST: Pre- Hypertension Current EDU 09/23/22 Gestation 38 Weeks and 3 Days 1 Para 0 Vital Signs Temperature 97.7 F 09/12/22 09:58 Heart Rate 97 09/12/22 09:58 Respiratory Rate 16 09/12/22 09:58 Blood Pressure 109/66 09/12/22 09:58 Temperature 97.7 F 09/12/22 09:58 Heart Rate 97 09/12/22 09:58 Respiratory Rate 16 09/12/22 09:58 Blood Pressure 109/66 09/12/22 09:58 O2 Saturation If not protocol: Oxygen Flow, liters/minute - NST Procedure NST Procedure Start Date 09/12/22 Start Time 10:00 Stop Time 08:42 Patient States Movement Yes 38 weeks reactive NST - Results and Plan Findings/Impression: Reactive NST
== END 2022-09-12 11:00 | disposition home or self-care (01) ==
LOC: WFO 09:52 → FBP 09:54 → WFO 11:00
PROVIDERS: ATTEND Obstetrics & Gynecology Obstetrics
DX: O10.913 Unspecified pre-existing hypertension complicating pregnancy, third trimester (principal); Z3A.38 38 weeks gestation of pregnancy
CPT/HCPCS: 59025

== ENCOUNTER 2022-09-16 08:13 | Inpatient (IN) | payer BC ==
[2022-09-16] MEDS ORDERED: miSOPROStoL 200 MCG TABLET PR PRN ×2 (09:04→16:20)
[2022-09-16] MEDS ORDERED: METHYLERGONOVINE 0.2 MG/ML VIAL IM PRN ×2 (09:04→16:19)
[2022-09-16] MEDS ORDERED: fentaNYL 100 MCG/2 ML VIAL IVP PRN (09:04)
[2022-09-16] MEDS ORDERED: TERBUTALINE 1 MG/ML VIAL SUBQ PRN ×2 (09:04→16:18)
[2022-09-16] MEDS ORDERED: lidocaine 1% 20 ML MDV ID PRN ×2 (09:04→16:21)
[2022-09-16] MEDS ORDERED: TRANEXAMIC ACID IN NACL 1,000 MG/100 ML BAG IV PRN ×2 (09:04→16:20)
[2022-09-16] MEDS ORDERED: OXYTOCIN 10 UNIT/ML VIAL IM PRN ×2 (09:04→16:21)
[2022-09-16] MEDS ORDERED: miSOPROStoL 200 MCG TABLET BC PRN ×2 (09:04→16:20)
[2022-09-16] MEDS ORDERED: OXYTOCIN/SODIUM CHLORIDE 500 ML IV PRN (09:04)
[2022-09-16] MEDS ORDERED: CARBOPROST TROMETHAMINE 250 MCG/ML AMP IM PRN ×2 (09:04→16:19)
[2022-09-16] MEDS ORDERED: ceFAZolin 2 GM in SODIUM CHLORIDE 0.9% MINIBAG 100 ML IV ONE ×2 (09:04→18:00)
[2022-09-16] MEDS ORDERED: SODIUM CHLORIDE FLUSH 0.9% 10 ML SYRINGE IVP PRN ×2 (09:04→16:19)
[2022-09-16 09:18] LABS: BASOPHILS % (AUTO) 0.3 %; EOSINOPHILS # (AUTO) 0.1 10^3/uL (0.0-0.7); EOSINOPHILS % (AUTO) 0.6 %; HCT - HEMATOCRIT 37.5 % (37.0-47.0); HGB - HEMOGLOBIN 12.9 g/dL (12.0-16.0); LYMPHOCYTES # (AUTO) 1.9 10^3/uL (1.5-3.5); LYMPHOCYTES % (AUTO) 14.7 %; MEAN CORPUSCULAR HEMOGLOBIN 32.5 pg (27.0-31.0); MEAN CORPUSCULAR HGB CONC 34.4 g/dL (32.0-36.0); MEAN CORPUSCULAR VOLUME 94.5 fL (81.0-99.0); MEAN PLATELET VOLUME 9.8 fL (7.9-10.8); MONOCYTES # (AUTO) 0.9 10^3/uL (0.0-1.0); MONOCYTES % (AUTO) 6.8 %; NEUTROPHILS # (AUTO) 9.8 10^3/uL (1.5-6.6); NEUTROPHILS % (AUTO) 76.8 %; PLT - PLATELET COUNT 197 10^3/uL (130-450); RED BLOOD COUNT 3.97 10^6/uL (4.20-5.40); RED CELL DISTRIBUTION WIDTH 13.1 % (12.0-15.0); WHITE BLOOD COUNT 12.8 x10^3/uL (4.8-10.8)
--- NOTE | 2022-09-16 09:28 | HISTORY & PHYSICAL EXAMINATION ---
Admit History - Visit Reason Visit Reason: Other - : 1 Parity: 0 Care: positive: [facility] Risk/History: positive: Other (Chronic hypertension) Smoking Status: Never smoker - Mother's Labs Mother's Blood Type: positive: A Mother's RH: positive: Positive GBS: positive: Group B Strep Positive Rubella Status: positive: Immune - Other Maternal History Other Maternal History: Med: IBS Surg: [place] teeth 2014 Social: , denies tabatha Fam: noncontributory - HPI Diagnosis/Indication for NST: Gestational Hypertension (Direct admission for IOL, NST not done) Current EDU 09/23/22 Gestation 39 Weeks and 0 Days 1 Vital Signs Temperature 98.6 F 09/16/22 08:56 Heart Rate 105 H 09/16/22 08:56 Respiratory Rate 18 09/16/22 08:56 Blood Pressure 125/87 H 09/16/22 08:56 Temperature 98.6 F 09/16/22 08:56 Heart Rate 105 H 09/16/22 08:56 Respiratory Rate 18 09/16/22 08:56 Blood Pressure 125/87 H 09/16/22 08:56 O2 Saturation If not protocol: Oxygen Flow, liters/minute - NST Procedure NST Procedure Start Time 10:00 Stop Time 10:59 Meds/Allgy - Allergies Allergies/Adverse Reactions: Allergies Allergy/AdvReac Type Severity Reaction Status Date / Time Penicillins Allergy Hives Verified 09/05/22 11:32 Physical - Abdominal Exam Vital Signs: Temp Pulse Resp BP Pulse Ox O2 Flow Rate 98.6 F 105 H 18 125/87 H 09/16/22 08:56 09/16/22 08:56 09/16/22 08:56 09/16/22 08:56 Contraction Frequency (min/apart): 10 Contraction Intensity: positive: Mild Uterine Resting Tone: positive: Soft - Monitoring Heart Rate Baseline: 140 Strip Review: positive: Category I - Presentation Presentation: positive: Vertex (3000g, placenta fundal with succenturiate lobe) - Vaginal Exam Dilation (in cm): 0 Effacement (%): 50 Station: positive: -3 Cervical Position: positive: Posterior Plan for Labor - Plan For Labor I expect patient to be DC'd or transferred within 96 hours.: Yes Plan for Labor: 27yo at 39w admitted for scheduled IOL for chronic hypertension, controlled - Admit, T&S, CBC, CMP, MTP - Misoprostol 50mcg q4-6h - Plan for Pitocin - Cat 1, continue to monitor - Plan for GBS prophylaxis in active labor complicated by chronic hypertension controlled with nifedipine, succenturiate placenta, GBS pos
[2022-09-16 09:30] LABS: ALBUMIN 3.7 g/dL (3.2-5.5); ALBUMIN/GLOBULIN RATIO 1.3 (1.0-2.2); BILIRUBIN,TOTAL 0.4 mg/dL (0.2-1.0); CALCIUM 9.5 mg/dL (8.5-10.3); CREATININE 0.5 mg/dL (0.6-1.3); POTASSIUM 3.7 mmol/L (3.5-4.5); TOTAL PROTEIN 6.6 g/dL (6.4-8.9)
[2022-09-16] MEDS ORDERED: miSOPROStoL 100 MCG TABLET BC SCH (10:00)
[2022-09-16] MEDS ORDERED: LACTATED RINGERS 1,000 ML IV SCH (10:00)
[2022-09-16] MEDS ORDERED: SODIUM CHLORIDE FLUSH 0.9% 10 ML SYRINGE IVP SCH (10:00)
[2022-09-16] MEDS ORDERED: OXYTOCIN/SODIUM CHLORIDE 500 ML IV SCH ×2 (10:00→17:00)
[2022-09-16 10:35] LABS: CREATININE,URINE 30.1; TOTAL PROTEIN,URINE TIMED > 2000 mg/dL
[2022-09-16 10:41] LABS: PROTEIN/CREATININE RATIO,URINE 13.3 (<=0.2)
[2022-09-16] MEDS: miSOPROStoL 100 MCG TABLET BC SCH (16:21)
[2022-09-16] MEDS ORDERED: ceFAZolin 1 GM in SODIUM CHLORIDE 0.9% MINIBAG 100 ML IV SCH (18:00)
[2022-09-16] MEDS ORDERED: DOXYLAMINE 25 MG TABLET PO PRN (20:29)
--- NOTE | 2022-09-16 20:29 | PROVIDER PROGRESS NOTE ---
Labor Progress Note - Uterine Monitoring Uterine Monitoring Mode: positive: External toco Contraction Frequency (min/apart): 2 Contraction Intensity: positive: Mild to moderate Uterine Resting Tone: positive: Soft - Monitoring Monitor Mode: positive: External ultrasound Heart Rate Baseline: 150 Heart Rate Variability: positive: Moderate (6-25 bmp) Accelerations: positive: Present, 15x15 Decelerations: positive: None Strip Review: positive: Category I - Vaginal Exam Dilation (in cm): 3 Effacement (%): 80 Station: -2 Cervical Position: Midposition - Labor Progress Note Labor Progress Note/Additional Text: 27yo at 39w admitted for scheduled IOL for chronic hypertension, controlled - Received misoprostol 50mcg x2 - Plan for Pitocin 2200 - Start cefazolin after Pitocin starts - Plan for AROM when active labor
[2022-09-16] MEDS: LACTATED RINGERS 1,000 ML IV SCH (22:23)
[2022-09-16] MEDS: SODIUM CHLORIDE FLUSH 0.9% 10 ML SYRINGE IVP SCH (22:24)
[2022-09-16] MEDS: fentaNYL 100 MCG/2 ML VIAL IVP PRN (23:01)
[2022-09-17] MEDS: fentaNYL 100 MCG/2 ML VIAL IVP PRN ×2 (01:26→03:33)
[2022-09-17] MEDS: LACTATED RINGERS 1,000 ML IV SCH ×4 (03:49→13:54)
[2022-09-17] MEDS ORDERED: ROPIVACAINE 0.2% 200 MG/100 ML BAG EP ONE (04:10)
[2022-09-17] MEDS ORDERED: SODIUM CHLORIDE 0.9% 10 ML VIAL IVP ONE (04:42)
[2022-09-17] MEDS ORDERED: fentaNYL 100 MCG/2 ML VIAL ONE (04:42)
[2022-09-17] MEDS ORDERED: ePHEDrine 50 MG/ML VIAL IVP PRN (04:44)
[2022-09-17] MEDS ORDERED: NALOXONE 0.4 MG/ML VIAL IVP PRN (04:44)
[2022-09-17] MEDS ORDERED: ROPIVACAINE 0.2% 200 MG/100 ML BAG EP PRN (04:44)
--- NOTE | 2022-09-17 04:44 | ANESTHESIA ---
Pre-Anesthesia VS, & Labs - Diagnosis active labor - Procedure vaginal delivery Vital Signs: Temp Pulse Resp BP Pulse Ox O2 Flow Rate 37.0 C 105 H 18 125/87 H 09/16/22 08:56 09/16/22 08:56 09/16/22 08:56 09/16/22 08:56 Height: 5 ft 7 in Weight (kg): 81.647 kg Body Mass Index: 28.1 BMI Classification: Overweight - NPO Last Fluid Intake: clear liquids - Is Patient ?: Yes - Lab Results Current Lab Results: Laboratory Tests 09/16/22 09:00: Sodium 137, Potassium 3.7, Chloride 106, Carbon Dioxide 21, Anion Gap 10.0, BUN 10, Creatinine 0.5 L, Estimated GFR (MDRD) 146, Glucose 103, Calcium 9.5, Total Bilirubin 0.4, AST 14, ALT 10, Alkaline Phosphatase 107, Total Protein 6.6, Albumin 3.7, Globulin 2.9, Albumin/Globulin Ratio 1.3 09/16/22 09:00: WBC 12.8 H, RBC 3.97 L, Hgb 12.9, Hct 37.5, MCV 94.5, MCH 32.5 H , MCHC 34.4, RDW 13.1, Plt Count 197, MPV 9.8, Neut # (Auto) 9.8 H, Lymph # (Auto) 1.9, [place] # (Auto) 0.9, Eos # (Auto) 0.1, Baso # (Auto) 0.0, Absolute Nucleated RBC 0.00, Nucleated RBC % 0.0 09/16/22 09:00: Blood Type A POSITIVE, Antibody Screen NEGATIVE Lab results reviewed: Yes Fish Bones: 09/16/22 09:00 09/16/22 09:00 Home Medications and Allergies Active Medications Carboprost Tromethamine (Carboprost Tromethamine 250 Mcg/Ml Amp) 250 mcg IM .ONCE PRN PRN Reason: Hemorrhage Doxylamine Succinate (Doxylamine 25 Mg Tablet) 25 mg PO QPM PRN PRN Reason: Insomnia Last Admin: 09/16/22 22:37 Dose: 25 mg Fentanyl (Fentanyl 100 Mcg/2 Ml Vial) 50 mcg IVP Q1H PRN PRN Reason: Severe Pain (score 7-10) Last Admin: 09/17/22 03:33 Dose: 50 mcg Oxytocin/Sodium Chloride (Pitocin/Sodium Chloride) 500 mls @ 999 mls/hr IV PRN PRN; Protocol PRN Reason: POST- HEMORR PREVENTION Tranexamic Acid (Tranexamic 1,000 Mg/100ml-Nacl) 1,000 mg in 100 mls @ 600 mls/hr IV Q30M PRN PRN Reason: EBL >1200mL and within 3hr Lactated Ringer's (Lr) 1,000 mls @ 125 mls/hr IV .Q8H [facility] Last Admin: 09/17/22 03:49 Dose: 125 mls/hr Oxytocin/Sodium Chloride (Pitocin/Sodium Chloride) 500 mls @ 1 mls/hr IV TITR YANIV; Protocol Last Titration: 09/17/22 03:04 Dose: 9 milliunit/min, 9 mls/hr Cefazolin Sodium 1 gm/ Sodium (Chloride) 100 mls @ 200 mls/hr IV Q8H [facility] Lidocaine HCl (Lidocaine 1% 20 Ml Mdv) 20 ml ID .ONCE PRN PRN Reason: PERINEAL REPAIR Methylergonovine Maleate (Methylergonovine 0.2 Mg/Ml Vial) 0.2 mg IM .ONCE PRN PRN Reason: Hemorrhage Misoprostol (Misoprostol 100 Mcg Tablet) 50 mcg BC Q4H [facility] Stop: 09/17/22 09:01 Last Admin: 09/16/22 16:21 Dose: 50 mcg Misoprostol (Misoprostol 200 Mcg Tablet) 600 mcg BC .ONCE PRN PRN Reason: Hemorrhage Misoprostol (Misoprostol 200 Mcg Tablet) 800 mcg [place] .ONCE PRN PRN Reason: Hemorrhage Oxytocin (Oxytocin 10 Unit/Ml Vial) 10 unit IM .ONCE PRN PRN Reason: Step One if no IV access. Sodium Chloride (Sodium Chloride Flush 0.9% 10 Ml Syringe) 10 ml IVP PRN PRN PRN Reason: NEEDED PER PROVIDER ORDERS Sodium Chloride (Sodium Chloride Flush 0.9% 10 Ml Syringe) 10 ml IVP Q8H [facility] Last Admin: 09/16/22 22:24 Dose: 10 ml Terbutaline Sulfate (Terbutaline 1 Mg/Ml Vial) 0.25 mg SUBQ .ONCE PRN PRN Reason: Tachystole Allergies/Adverse Reactions: Allergies Allergy/AdvReac Type Severity Reaction Status Date / Time Penicillins Allergy Hives Verified 09/05/22 11:32 Anes History & Medical History - Anesthetic History Family history of Anesthesia Complications: Denies Family history of Malignant Hyperthermia: Denies - Medical History Cardiovascular: reports: Hypertension Pulmonary: reports: None Gastrointestinal: reports: None Urinary: reports: None Neuro: reports: None Musculoskeletal: reports: None Endocrine/Autoimmune: reports: None Blood Disorders: reports: None Skin: reports: None Smoking Status: Never smoker Psychosocial: reports: No issues indicated History of Cancer?: No - Obstetrical History : 1 Parity: 0 Events: reports: Other (Chronic hypertension) Complications: reports: Other (succenturiate placenta) Exam General: Alert, Oriented x3, Cooperative, No acute distress Dental: WNL Mouth Openin Fingerbreadth Neck Mobility: Normal Mallampati classification: II Thyromental Distance: 4-6 cm Mental/Cognitive Status: Alert/Oriented X3, Normal for patient Plan Anesthesia Type: Epidural Consent for Procedure(s) Verified and Reviewed: Yes Code Status: Attempt Resuscitation ASA classification: 2-Mild systemic disease Is this case an emergency?: No
[2022-09-17] MEDS ORDERED: LIDOCAINE-PF 2% 10 ML AMP SUBQ ONE (04:54)
[2022-09-17 06:40] LABS: CREATININE,URINE 68.9 mg/dL; PROTEIN/CREATININE RATIO,URINE 0.1 (<=0.2)
--- NOTE | 2022-09-17 06:47 | PROVIDER PROGRESS NOTE ---
Labor Progress Note - Uterine Monitoring Uterine Monitoring Mode: positive: External toco Contraction Frequency (min/apart): 2 Contraction Intensity: positive: Moderate Uterine Resting Tone: positive: Soft - Monitoring Monitor Mode: positive: External ultrasound Heart Rate Baseline: 150 Heart Rate Variability: positive: Moderate (6-25 bmp) Accelerations: positive: Present, 15x15 Decelerations: positive: None Strip Review: positive: Category I - Vaginal Exam Dilation (in cm): 10 Effacement (%): 100 Station: 1 - Labor Progress Note Labor Progress Note/Additional Text: 27yo at 39w admitted for IOL for chronic hypertension, controlled - Initial MTP was 13, repeat catheterized MTP sample 0.1, normal. Normotensive, no preeclampsia at this time. - Received 2 doses misoprostol 50mcg BC - Received cephazolin x1, q8 - Continue Pitocin, currently at 7mu - Nifedipine not ordered on admission as she has been normotensive - Cat 1, anticipate - Succenturiate lobe, ensure placenta intact
[2022-09-17] MEDS: miSOPROStoL 100 MCG TABLET BC SCH ×3 (07:24→07:26)
[2022-09-17] MEDS: SODIUM CHLORIDE FLUSH 0.9% 10 ML SYRINGE IVP SCH ×2 (07:25→10:33)
[2022-09-17] MEDS ORDERED: LEVONORGESTREL 20 MCG/24H IUD IY ONE ×2 (08:07→08:22)
[2022-09-17] MEDS: ceFAZolin 1 GM in SODIUM CHLORIDE 0.9% MINIBAG 100 ML IV SCH ×2 (09:10→13:03)
[2022-09-17] MEDS: OXYTOCIN/SODIUM CHLORIDE 500 ML IV PRN ×2 (10:30→11:02)
[2022-09-17 11:34] LABS: BASOPHILS # (AUTO) 0.1 10^3/uL (0.0-0.1); BASOPHILS % (AUTO) 0.3 %; EOSINOPHILS % (AUTO) 0.1 %; HCT - HEMATOCRIT 33.4 % (37.0-47.0); HGB - HEMOGLOBIN 11.2 g/dL (12.0-16.0); LYMPHOCYTES # (AUTO) 1.1 10^3/uL (1.5-3.5); LYMPHOCYTES % (AUTO) 5.1 %; MEAN CORPUSCULAR HEMOGLOBIN 32.5 pg (27.0-31.0); MEAN CORPUSCULAR HGB CONC 33.5 g/dL (32.0-36.0); MEAN CORPUSCULAR VOLUME 96.8 fL (81.0-99.0); MEAN PLATELET VOLUME 9.6 fL (7.9-10.8); MONOCYTES # (AUTO) 1.8 10^3/uL (0.0-1.0); MONOCYTES % (AUTO) 8.3 %; NEUTROPHILS # (AUTO) 18.2 10^3/uL (1.5-6.6); NEUTROPHILS % (AUTO) 85.5 %; PLT - PLATELET COUNT 158 10^3/uL (130-450); RED BLOOD COUNT 3.45 10^6/uL (4.20-5.40); WHITE BLOOD COUNT 21.3 x10^3/uL (4.8-10.8)
[2022-09-17] MEDS ORDERED: SIMETHICONE CHEW 80 MG TABLET PO PRN (12:18)
[2022-09-17 12:24] LABS: RBC MORPHOLOGY (MULTIPLE) NORMAL APPEARANCE (NORMAL); SLIDE REVIEW? Indicated
[2022-09-17 12:25] LABS: PLATELET ESTIMATE, MANUAL NORMAL (130-450,000) (NORMAL); PLATELET MORPHOLOGY NORMAL APPEARANCE (NORMAL)
--- NOTE | 2022-09-17 12:34 | DELIVERY NOTE ---
Delivery Note - Labor Labor: positive: Augmented by oxytocin - Delivery Method Delivery Method: positive: Spontaneous vaginal delivery - Cervical Ripening Method Cervical Ripening Method: positive: Misoprostil - Presentation Presentation: positive: OA - occiput anterior - Nuchal Cord Nuchal Cord: positive: None - Anesthetic Anesthetic Type: - Amniotic Fluid Description Amniotic Fluid Description: positive: Clear - Laceration Laceration: positive: 2nd degree, Labial (Bilateral), Perineal - Suture Suture Type: positive: Vicryl Suture Size: positive: 3-0 - Delivery Outcome Delivery Outcome: positive: Livebirth - [place] : positive: Placed in direct skin contact with mother [place] sex: positive: Female - Cord Cord: positive: 3 vessels - Placenta Placenta: positive: Intact - Estimated Blood Loss Estimated Blood Loss (in cc): 1,800 - Post Delivery Events Post Delivery Events: positive: Hemorrhage - Delivery Comments (Free Text/Narrative) Delivery Comments (Free Text/Narrative): Preoperative Diagnoses 39 weeks gestation Chronic hypertension GBS positive Accessory placental lobe Postoperative Diagnoses Same Status post [place] vaginal delivery Delivery of live peterson hemorrhage 27-year-old G1, P0 presented at 39 weeks for induction of labor secondary to chronic hypertension controlled with oral antihypertensives. She was started on misoprostol for cervical ripening then switch to oxytocin when favorable. She had spontaneous rupture of membranes with clear fluid. She was GBS positive with penicillin allergy and received 2 doses of cefazolin. She received an epidural for pain control. Second stage was longer than normal, but still within normal limits. Delivery Summary: Patient was placed in the dorsal lithotomy position and the bed was broken down. Upon maternal pushing the head was delivered atraumatically followed by the anterior shoulder, posterior shoulder, then the remainder of the infant's body. A female was delivered with APGARS of 8 at 1 minute and 9 at 5 minutes. The was placed on its mother's chest . After the cord finished pulsating, the umbilical cord was clamped times two and cut. The placenta delivered intact with three vessel cord. It appeared intact with an accessory lobe noted approximately 3 cm to the side of the main placental plate. An ultrasound was performed that showed a normal-appearing uterus with no apparent retained placenta and no significant Doppler blood flow within the uterus. Placenta was not sent to pathology. Thirty units of Pitocin were added to the IV fluid and allowed to run freely. At this point, an IUD was requested, so the Mirena IUD was removed from its package, strings were trimmed, and using a ring forcep, cyst placed to the uterine fundus using my opposite hand as a guide. The ring forcep was released moved to the side and removed from the vagina with string still in place. Uterine massage was performed until uterus was deemed firm. Upon inspection the perineum, she had a significant laceration including bilateral labia, a second-degree midline laceration, and a an extension into the perineum. This was a very difficult repair starting with the secondary portion of the vagina, the suture was carried in a running fashion down towards the perineum. The right sidewall was then closed with a separate suture. Attention was then turned to the left sidewall and the peritoneal extension was noted approximately 5 cm into the perineum. The apex was grasped with Allis clamps and a suture was thrown at the apex. This was gradually walked down with combination of the Allis clamps and sutures providing traction. To the difficulty of this, I called AYLEEN Gutierres to assist with labial retraction. This was carried down to the midline, the midline portion of the perineum was closed and somewhat above the level of the hymen to stop. Additional [id number] stitch was sewn had a bleeding portion of the sidewall. Due to concern for possible hematoma formation and the previously no ticed hemorrhage, vaginal packing was placed in addition to a Vazquez catheter under sterile conditions. Uterus again massaged and found to be firm. Needle and sponge counts were correct. Postrepair H/H was mildly down, but not significant. Vital signs were stable. Patient was stable and allowed to recover in L&D room. Infant was stable and remained in room with mother. weight: 3012 g.
[2022-09-17] MEDS: IBUPROFEN 600 MG TABLET PO SCH ×2 (13:03→18:42)
[2022-09-17] MEDS: ACETAMINOPHEN 500 MG TABLET PO SCH ×2 (13:03→21:21)
[2022-09-17] MEDS ORDERED: LACTATED RINGERS 1,000 ML IV ONE (13:49)
--- NOTE | 2022-09-17 16:52 | PROVIDER PROGRESS NOTE ---
Subjective - Prog Note Date Prog Note Date: 09/17/22 Prog Note Time: 16:49 - Subjective Pt reports feeling: Improved Subjective: And came to check on patient. Currently doing much better. She had a initial hemoglobin of 12.9 and follow-up hemoglobin of 11.2. I expect this to continue to fall as she equilibrates. Repeat pending approximately 1 hour. Vital signs are stable. She did have some vasovagal symptoms earlier concerning for acute blood loss anemia, but this has resolved. Currently sitting up and holding baby without issue. Vaginal packing remains in place and we will remove this later this evening. Can remove Vazquez catheter after she has packing removed and is able to ambulate without dizziness. Objective - Vital Signs/Intake & Output Vital Signs: Vital Signs x48h Temp Pulse Resp BP Pulse Ox 09/17/22 14:31 98 16 106/63 99 09/17/22 14:00 97 16 106/63 100 09/17/22 13:36 93 16 106/60 100 09/17/22 13:31 95 16 102/58 L 100 09/17/22 13:26 92 16 101/61 100 09/17/22 13:21 91 16 103/61 100 09/17/22 13:16 91 16 104/63 100 09/17/22 13:11 86 16 108/65 100 09/17/22 13:06 92 16 104/67 100 09/17/22 13:01 82 16 105/66 100 09/17/22 12:56 81 16 106/62 09/17/22 12:51 92 16 102/63 100 09/17/22 12:45 85 16 89/57 L 100 09/17/22 12:42 66 14 73/31 L 09/17/22 12:38 75 16 75/38 L 09/17/22 12:30 151 H 20 117/70 97 09/17/22 12:16 103 H 16 117/72 100 09/17/22 12:00 117 H 16 117/74 100 09/17/22 11:45 106 H 16 118/73 99 09/17/22 11:31 97 16 119/74 100 09/17/22 11:16 99 16 120/70 09/17/22 11:01 105 H 18 117/72 99 09/17/22 10:45 114 H 18 119/75 99 09/17/22 10:30 100.2 F 129 H 16 113/79 98 Intake & Output: Intake & Output 09/14/22 09/15/22 09/16/22 09/17/22 23:59 23:59 23:59 23:59 Intake Total 3.633 5337.149 Output Total 1345 Balance 3.633 3992.149 - Lab Results Fish Bones: 09/17/22 11:29 09/16/22 09:00 Other Labs: Lab Results x24hrs 09/17/22 09/17/22 09/16/22 Range/Units 11:29 05:40 09:00 WBC 21.3 H (4.8-10.8) x10^3/uL RBC 3.45 L (4.20-5.40) 10^6/uL Hgb 11.2 L (12.0-16.0) g/dL Hct 33.4 L (37.0-47.0) % MCV 96.8 (81.0-99.0) fL MCH 32.5 H (27.0-31.0) pg MCHC 33.5 (32.0-36.0) g/dL RDW 13.0 (12.0-15.0) % Plt Count 158 (130-450) 10^3/uL MPV 9.6 (7.9-10.8) fL Neut # (Auto) 18.2 H (1.5-6.6) 10^3/uL Lymph # (Auto) 1.1 L (1.5-3.5) 10^3/uL [place] # (Auto) 1.8 H (0.0-1.0) 10^3/uL Eos # (Auto) 0.0 (0.0-0.7) 10^3/uL Baso # (Auto) 0.1 (0.0-0.1) 10^3/uL Absolute Nucleated RBC 0.00 x10^3/uL Nucleated RBC % 0.0 /100WBC Manual Slide Review Indicated Platelet Estimate NORMAL (130-450,000) (NORMAL) Platelet Morphology NORMAL APPEARANCE (NORMAL) RBC Morph Micro Appear NORMAL APPEARANCE (NORMAL) Urine Creatinine 68.9 mg/dL Ur Total Protein Timed 9 mg/dL Protein/Creatinin Ratio 0.1 (<=0.2) Blood Type A POSITIVE Antibody Screen NEGATIVE Crossmatch IS Only See Detail
[2022-09-17 18:11] LABS: HCT - HEMATOCRIT 29.6 % (37.0-47.0); HGB - HEMOGLOBIN 10.1 g/dL (12.0-16.0)
[2022-09-17] MEDS ORDERED: oxyCODONE 5 MG TABLET PO PRN (19:19)
[2022-09-17] MEDS: DOCUSATE SODIUM 100 MG CAPSULE PO PRN (21:21)
[2022-09-18] MEDS: IBUPROFEN 600 MG TABLET PO SCH ×4 (04:52→22:29)
[2022-09-18 04:54] LABS: BASOPHILS # (AUTO) 0.1 10^3/uL (0.0-0.1); BASOPHILS % (AUTO) 0.3 %; EOSINOPHILS # (AUTO) 0.1 10^3/uL (0.0-0.7); EOSINOPHILS % (AUTO) 0.5 %; HCT - HEMATOCRIT 25.8 % (37.0-47.0); HGB - HEMOGLOBIN 8.6 g/dL (12.0-16.0); LYMPHOCYTES # (AUTO) 2.3 10^3/uL (1.5-3.5); LYMPHOCYTES % (AUTO) 13.8 %; MEAN CORPUSCULAR HEMOGLOBIN 32.7 pg (27.0-31.0); MEAN CORPUSCULAR HGB CONC 33.3 g/dL (32.0-36.0); MEAN CORPUSCULAR VOLUME 98.1 fL (81.0-99.0); MEAN PLATELET VOLUME 9.4 fL (7.9-10.8); MONOCYTES # (AUTO) 1.3 10^3/uL (0.0-1.0); MONOCYTES % (AUTO) 7.8 %; NEUTROPHILS # (AUTO) 12.7 10^3/uL (1.5-6.6); NEUTROPHILS % (AUTO) 76.8 %; PLT - PLATELET COUNT 151 10^3/uL (130-450); RED BLOOD COUNT 2.63 10^6/uL (4.20-5.40); RED CELL DISTRIBUTION WIDTH 13.3 % (12.0-15.0); WHITE BLOOD COUNT 16.5 x10^3/uL (4.8-10.8)
[2022-09-18] MEDS: ACETAMINOPHEN 500 MG TABLET PO SCH ×3 (05:19→21:07)
[2022-09-18] MEDS: DOCUSATE SODIUM 100 MG CAPSULE PO PRN ×2 (07:54→21:08)
--- NOTE | 2022-09-18 11:22 | PROVIDER PROGRESS NOTE ---
Subjective - Prog Note Date Prog Note Date: 09/18/22 Prog Note Time: 11:19 - Subjective Pt reports feeling: Improved Subjective: Subjective Patient reports she is doing well. Lochia appropriate. Denies heavy bleeding. Ambulating. Pelvic and abdominal pain well-controlled. Tolerating oral intake. Diet: Regular. Voiding without difficulty. Passing flatus. Denies BM. Patient is bonding with baby in room Breast feeding slow going, supplementing with formula Denies feeling lightheaded, dizzy or excessively fatigued. Control: IUD in place Objective General: Alert, oriented, no apparent distress. Cardiovascular: Regular rate. Regular rhythm. Lungs: No increased work of breathing. Abdomen: Uterus firm. Below umbilicus. No guarding or rebound. Extremities: No pain on palpation. No cords palpated. Distal pulses intact. : Swelling has improved in bilateral labia, left slightly more swollen than right. Labs: Initial hemoglobin 12.9 Postoperative hemoglobin 8.6 Assessment and Plan day 1. -Routine care -Anticipate discharge tomorrow hemorrhage/acute blood loss anemia -Asymptomatic. Hemoglobin fall as anticipated. -IV to remain in place until tomorrow. Chronic hypertension -BP meds held as vitals are normal and stable. Objective - Vital Signs/Intake & Output Vital Signs: Vital Signs x48h Temp Pulse Resp BP Pulse Ox 09/18/22 07:48 98.4 F 97 16 128/78 97 Intake & Output: Intake & Output 09/15/22 09/16/22 09/17/22 09/18/22 23:59 23:59 23:59 23:59 Intake Total 3.633 5337.149 790 Output Total 2770 1675 Balance 3.633 2567.149 -885 - Lab Results Fish Bones: 09/18/22 04:49 09/16/22 09:00 Other Labs: Lab Results x24hrs 09/18/22 09/17/22 09/17/22 Range/Units 04:49 18:08 11:29 WBC 16.5 H 21.3 H (4.8-10.8) x10^3/uL RBC 2.63 L 3.45 L (4.20-5.40) 10^6/uL Hgb 8.6 L 10.1 L 11.2 L (12.0-16.0) g/dL Hct 25.8 L 29.6 L 33.4 L (37.0-47.0) % MCV 98.1 96.8 (81.0-99.0) fL MCH 32.7 H 32.5 H (27.0-31.0) pg MCHC 33.3 33.5 (32.0-36.0) g/dL RDW 13.3 13.0 (12.0-15.0) % Plt Count 151 158 (130-450) 10^3/uL MPV 9.4 9.6 (7.9-10.8) fL Neut # (Auto) 12.7 H 18.2 H (1.5-6.6) 10^3/uL Lymph # (Auto) 2.3 1.1 L (1.5-3.5) 10^3/uL [place] # (Auto) 1.3 H 1.8 H (0.0-1.0) 10^3/uL Eos # (Auto) 0.1 0.0 (0.0-0.7) 10^3/uL Baso # (Auto) 0.1 0.1 (0.0-0.1) 10^3/uL Absolute Nucleated RBC 0.00 0.00 x10^3/uL Nucleated RBC % 0.0 0.0 /100WBC Manual Slide Review Indicated Platelet Estimate NORMAL (130-450,000) (NORMAL) Platelet Morphology NORMAL APPEARANCE (NORMAL) RBC Morph Micro Appear NORMAL APPEARANCE (NORMAL) Blood Type Antibody Screen Crossmatch IS Only 09/16/22 Range/Units 09:00 WBC (4.8-10.8) x10^3/uL RBC (4.20-5.40) 10^6/uL Hgb (12.0-16.0) g/dL Hct (37.0-47.0) % MCV (81.0-99.0) fL MCH (27.0-31.0) pg MCHC (32.0-36.0) g/dL RDW (12.0-15.0) % Plt Count (130-450) 10^3/uL MPV (7.9-10.8) fL Neut # (Auto) (1.5-6.6) 10^3/uL Lymph # (Auto) (1.5-3.5) 10^3/uL [place] # (Auto) (0.0-1.0) 10^3/uL Eos # (Auto) (0.0-0.7) 10^3/uL Baso # (Auto) (0.0-0.1) 10^3/uL Absolute Nucleated RBC x10^3/uL Nucleated RBC % /100WBC Manual Slide Review Platelet Estimate (NORMAL) Platelet Morphology (NORMAL) RBC Morph Micro Appear (NORMAL) Blood Type A POSITIVE Antibody Screen NEGATIVE Crossmatch IS Only See Detail
[2022-09-18] MEDS: LACTATED RINGERS 1,000 ML IV SCH (20:23)
[2022-09-19] MEDS: ACETAMINOPHEN 500 MG TABLET PO SCH (04:46)
[2022-09-19] MEDS: IBUPROFEN 600 MG TABLET PO SCH (04:46)
[2022-09-19 05:28] LABS: BASOPHILS # (AUTO) 0.1 10^3/uL (0.0-0.1); BASOPHILS % (AUTO) 0.4 %; EOSINOPHILS # (AUTO) 0.2 10^3/uL (0.0-0.7); EOSINOPHILS % (AUTO) 1.3 %; HCT - HEMATOCRIT 26.1 % (37.0-47.0); HGB - HEMOGLOBIN 8.5 g/dL (12.0-16.0); LYMPHOCYTES # (AUTO) 2.8 10^3/uL (1.5-3.5); MEAN CORPUSCULAR HEMOGLOBIN 32.9 pg (27.0-31.0); MEAN CORPUSCULAR HGB CONC 32.6 g/dL (32.0-36.0); MEAN CORPUSCULAR VOLUME 101.2 fL (81.0-99.0); MEAN PLATELET VOLUME 9.6 fL (7.9-10.8); MONOCYTES % (AUTO) 7.7 %; NEUTROPHILS # (AUTO) 9.2 10^3/uL (1.5-6.6); NEUTROPHILS % (AUTO) 68.6 %; PLT - PLATELET COUNT 176 10^3/uL (130-450); RED BLOOD COUNT 2.58 10^6/uL (4.20-5.40); RED CELL DISTRIBUTION WIDTH 13.8 % (12.0-15.0); WHITE BLOOD COUNT 13.3 x10^3/uL (4.8-10.8)
--- NOTE | 2022-09-19 10:42 | DISCHARGE SUMMARY ---
"Discharge Summary Admit Date: 09/16/22 Discharge Date: 09/19/22 Discharging Provider: Harpreet Pascal MD Condition at Discharge: Good Discharge Disposition: 01 Home, Self Care - DIAGNOSES Admission Diagnoses: 39 weeks gestation Chronic hypertension Discharge Diagnoses with Status of Each Condition: 39 weeks gestation Chronic hypertension Status post spontaneous vaginal delivery Delivery of live peterson hemorrhage - HPI History of Present Illness: Subjective Patient reports she is doing well. Lochia appropriate. Denies heavy bleeding. Ambulating. Pelvic and abdominal pain well-controlled. Tolerating oral intake. Diet: Regular. Voiding without difficulty. Passing flatus. Denies BM. Patient is bonding with baby in room Breast feeding going well. Denies feeling lightheaded, dizzy or excessively fatigued. Control: IUD Objective General: Alert, oriented, no apparent distress. Cardiovascular: Regular rate. Regular rhythm. Lungs: No increased work of breathing. Abdomen: Uterus firm. Below umbilicus. No guarding or rebound. Extremities: No pain on palpation. No cords palpated. Distal pulses intact. : Labial swelling has normalized - CONSULTS | PROCEDURES Consultations: Anesthesia for epidural Procedures: Spontaneous vaginal delivery - HOSPITAL COURSE Hospital Course: Patient was admitted at 39 weeks for induction of labor secondary to chronic hypertension controlled on oral medications. She received an epidural for pain control and cefazolin for GBS sepsis prophylaxis. She received misoprostol then oxytocin for induction. Induction was uncomplicated, however delivery was complicated by a significant perineal tear and hemorrhage. She did have an IUD placement at time of delivery. She received vaginal packing overnight. She subsequently developed significant vaginal bleeding. In her course, swelling resolved, and patient had no symptoms of anemia, and she was discharged on day 2. weight: 3012 g - ALLERGIES Allergies/Adverse Reactions: Allergies Allergy/AdvReac Type Severity Reaction Status Date / Time Penicillins Allergy Hives Verified 09/05/22 11:32 - LABS Result Diagrams: 09/19/22 05:11 09/16/22 09:00 - FOLLOW UP Follow Up: With [facility] in 1 week. - TIME SPENT Time Spent in Discharge (Minutes): 20"
--- NOTE | 2022-09-19 10:42 | Discharge Plan ---
Discharge Plan Problem Reviewed?: Yes Disposition: Home, Self Care Condition: Good Diet: Regular Activity Restrictions: No Restrictions Instruction Topics: Vaginal After, Depression No Smoking: If you smoke, Please STOP! Call for help. Follow-up with: Lynne Moreno DO [Provider Admit Priv/Credential] -
[2022-09-19 13:28] VITALS: BP 108/60
--- NOTE | 2022-09-19 13:34 | Labor Flowsheet ---
Labor Flowsheet Datetime Report Generated by CPN: 09/19/2022 13:33 Datetime: 09/19/2022 04:35 VITAL SIGNS NBP Sys/Aurora/Mean (mmHg): 104 : 56 : 67 Pulse: 91 SpO2 (%): 99 Datetime: 09/17/2022 12:38 PATIENT CARE IV/Blood Work: IV Bolus Started Patient Care Comments: 1000ml LR Datetime: 09/17/2022 10:52 Stage 2 Comments: 2nd degree midline, Bilateral labial vaginal wall tears Datetime: 09/17/2022 10:51 ASSESSMENT B Comments: 2nd degree midline, right side wall tear Datetime: 09/17/2022 10:44 Medication Comments: Mirena placed by Dr. Gwyn Datetime: 09/17/2022 10:37 COMMUNICATION Communication: Call/Page Placed to Provider Communication Comments: Dr. Gwyn calling Dr. Cayabyab Datetime: 09/17/2022 10:30 Stage of : Datetime: 09/17/2022 10:29 MEDICATIONS Pitocin (milliunits): Started @ 500ml/hr Datetime: 09/17/2022 10:25 UTERINE ACTIVITY Monitor Mode: Palpation Frequency (min): 2 Quality: Strong ASSESSMENT A Monitor Mode: External US FHR Baseline Rate : 170 FHR Baseline Changes: Tachycardia Variability: Minimal - Undetectable to <=5 bpm Accelerations: None Decelerations: Variable Category: Category II LaborFlag: Labor Datetime: 09/17/2022 10:00 Duration (sec): 60-90 Pattern: Normal: <= 5 Contractions in 10 Minutes Resting Tone (Palpate): Relaxed Contraction Comments: TOCO removed and palpation used for some of strip Datetime: 09/17/2022 09:52 I/O Interventions: Vazquez Discontinued Datetime: 09/17/2022 08:59 Pushing Progress: Perineal Bulging; Presenting Part Visible Datetime: 09/17/2022 08:55 Temperature (C): 37.9 Datetime: 09/17/2022 08:30 Monitor Interventions for UA: [place] 2 Adjusted Datetime: 09/17/2022 08:09 Vaginal Bleeding: Moderate Vaginal Exam Comments: Dr. Gwyn holding pressure on vaginal wall tear Datetime: 09/17/2022 07:37 STAGE 2 Pushing: Coached on Pushing Pushing Position: Pushing with Contractions Datetime: 09/17/2022 06:30 VAGINAL EXAM Dilatation (cm): 10.0 Station: 2 Exam by: Dr Cayabyab Datetime: 09/17/2022 06:00 Actions for Decelerations: Side to Side; Other Datetime: 09/17/2022 05:58 Anesthesia Level Check: T8- Ribs Datetime: 09/17/2022 05:54 Patient Position/Activity: Left Tilt; High Fowlers Datetime: 09/17/2022 05:52 Monitor Interventions for FHR: Ultrasound Adjusted Datetime: 09/17/2022 04:58 MATERNAL ASSESSMENT Level of Consciousness: Alert DTR's/Clonus: DTRs 2+ Anesthesia Comments: T8 brandee Datetime: 09/17/2022 04:57 PAIN Pain Scale: 4 Pain Presence: Intermittent Pain Type: Contraction Pain Location: Back Datetime: 09/17/2022 04:47 Pain Goal: 7 Pain Coping: Breathing Through Contractions Datetime: 09/17/2022 04:36 Comfort Measures: Breathing/Relaxation Datetime: 09/17/2022 04:29 Epidural Procedure Other: Pump Started Datetime: 09/17/2022 04:28 Pain Relief Measures: Epidural Given Datetime: 09/17/2022 04:22 Epidural Procedure: Loading Dose Datetime: 09/17/2022 04:12 PROCEDURE TIME OUT Procedure Verify: Correct Patient Identity; Correct Side and Site are Marked; Accurate Procedure Co nsent Form; Agreement on Procedure to be Done; Correct Patient Position; Safety Precautions Based on Patient History or Medication Use Datetime: 09/17/2022 04:10 Respirations: 18 Datetime: 09/17/2022 04:00 ANESTHESIA Epidural Positioning: Sitting Datetime: 09/17/2022 03:36 Analgesics/Sedatives: Fentanyl (mcg) @ 50 Datetime: 09/17/2022 03:31 Provider Notified (Name): M Karolb MD Notification Reason: Status Update; Status; Labor Status; Membrane Status Datetime: 09/17/2022 03:21 Effacement (%): 90 Amniotic Fluid Color: Clear Amniotic Fluid Amount: Moderate Amniotic Fluid Odor: Normal Cervix, Consistency: Moderate Cervix, Position: Midposition Position 'A': Left Occipital Anterior Datetime: 09/17/2022 03:07 Membrane Status: Ruptured Membranes Rupture Method: Spontaneous Membrane Comments: pt reports feeling a "pop". Datetime: 09/17/2022 02:15 Oxygen Method: Room Air Datetime: 09/17/2022 01:36 Antibiotics: Ancef IV (Gm) @ 2 Datetime: 09/17/2022 01:15 Comments: FHR 140 from [id number]. itn periodic mild yong decel noted Datetime: 09/17/2022 01:00 Pitocin Checklist: At Least 1 Acceleration of 15 bpm x 15 Seconds in 30 Minutes or Adequate Variabi lity; No More than 1 Late Deceleration Occurred in Past 30 Minutes; No More than 2 Variable Decelerat ions > 60 Seconds in Duration and decreasing >60 bpm in 30 minutes; No More than 5 Uterine Contractio ns in 10 Minutes for any 20 Minute Interval; Uterus Palpates Soft between Contractions Datetime: 09/16/2022 21:53 Teaching Comments: Answered questions about pain meds, nitrous, epidural timing and pitocin. Pt an d FOB verb understanding Datetime: 09/16/2022 20:17 Medications: Pitocin Datetime: 09/16/2022 19:56 RUQ Epigastric Pain: Denies Datetime: 09/16/2022 19:44 TEACHING Instructional Method: Verbal; Patient Instructed; Family/Support Person Instructed; Verbalized Unde rstanding Plan of Care: Plan of Care Discussed; Vaginal Delivery; Labor; Induction; Gestational Hypertension/ Preeclampsia/Eclampsia Unit Routine: Flu/Illness Precautions Labor/Induction: Cervical Ripening; Augmentation; Interventions; Activity; Pushing Methods Pain Management: IV Narcotics; Epidural; PRN Medications; Pain Scale/Goals; Comfort Measures Datetime: 09/16/2022 16:21 Cervical Ripening Agents: Cytotec @ Datetime: 09/16/2022 09:00 Headache: Denies Nausea/Vomiting: Denies Datetime: 09/16/2022 08:54 Temperature Route: Oral Datetime: 08/22/2022 10:39 Membranes Ruptured Date/Time: 09/17/2022 06:30
== END 2022-09-19 12:00 | disposition home or self-care (01) | DRG 806 ==
LOC: WFO 08:13 → FBP 08:15 → WFO 08:26 → FBP 08:27 → UNDOADMOB 10:08 → FBP 10:08
PROVIDERS: ADMIT Obstetrics & Gynecology; ATTEND Obstetrics & Gynecology
PROC: 3E0DXGC Introduction of Other Therapeutic Substance into Mouth and Pharynx, External Approach (ICD-10-PCS; 2022-09-16)
PROC: 10E0XZZ Delivery of Products of Conception, External Approach (ICD-10-PCS; principal; 2022-09-17)
PROC: 0KQM0ZZ Repair Perineum Muscle, Open Approach (ICD-10-PCS; 2022-09-17)
PROC: 0UH97HZ Insertion of Contraceptive Device into Uterus, Via Natural or Artificial Opening (ICD-10-PCS; 2022-09-17)
DX: O13.4 Gestational [pregnancy-induced] hypertension without significant proteinuria, complicating childbirth (principal); D62 Acute posthemorrhagic anemia; Z37.0 Single live birth; O72.1 Other immediate postpartum hemorrhage; O99.824 Streptococcus B carrier state complicating childbirth; O70.1 Second degree perineal laceration during delivery; O43.193 Other malformation of placenta, third trimester; Z3A.39 39 weeks gestation of pregnancy; O90.81 Anemia of the puerperium
CPT/HCPCS: 36415; 80053; 82570; 84156; 85014; 85018; 85025; 86850; 86900; 86901; 86920; A9270; J7120; J7298

== ENCOUNTER 2023-07-31 09:49 | Outpatient (CLI) | payer BC ==
[2023-07-31 10:01] LABS: BASOPHILS % (AUTO) 0.5 %; EOSINOPHILS # (AUTO) 0.3 10^3/uL (0.0-0.7); EOSINOPHILS % (AUTO) 4.2 %; HCT - HEMATOCRIT 39.5 % (37.0-47.0); HGB - HEMOGLOBIN 13.4 g/dL (12.0-16.0); LYMPHOCYTES # (AUTO) 2.1 10^3/uL (1.5-3.5); LYMPHOCYTES % (AUTO) 28.5 %; MEAN CORPUSCULAR HEMOGLOBIN 31.2 pg (27.0-31.0); MEAN CORPUSCULAR HGB CONC 33.9 g/dL (32.0-36.0); MEAN CORPUSCULAR VOLUME 92.1 fL (81.0-99.0); MEAN PLATELET VOLUME 9.1 fL (7.9-10.8); MONOCYTES # (AUTO) 0.7 10^3/uL (0.0-1.0); MONOCYTES % (AUTO) 8.9 %; NEUTROPHILS # (AUTO) 4.3 10^3/uL (1.5-6.6); NEUTROPHILS % (AUTO) 57.8 %; PLT - PLATELET COUNT 203 10^3/uL (130-450); RED BLOOD COUNT 4.29 10^6/uL (4.20-5.40); RED CELL DISTRIBUTION WIDTH 12.6 % (12.0-15.0); WHITE BLOOD COUNT 7.5 x10^3/uL (4.8-10.8)
[2023-07-31 10:17] LABS: ALBUMIN 4.8 g/dL (3.2-5.5); ALBUMIN/GLOBULIN RATIO 1.9 (1.0-2.2); ALKALINE PHOSPHATASE 53 IU/L (42-121); ALT ALANINE AMINOTRANSFERASE 11 IU/L (10-60); AST ASPARTATE AMINOTRANSFERASE 14 IU/L (10-42); BILIRUBIN,TOTAL 0.5 mg/dL (0.2-1.0); BUN - BLOOD UREA NITROGEN 17 mg/dL (6-20); CALCIUM 9.9 mg/dL (8.5-10.3); CARBON DIOXIDE - CO2 26 mmol/L (21-32); CHLORIDE 105 mmol/L (101-111); CHOL/HDL RATIO 3.4 (<4.4); CHOLESTEROL 192 mg/dL; CREATININE 0.6 mg/dL (0.6-1.3); GFR - MDRD 117 (>89); GLUCOSE 100 mg/dL (74-104); HDL CHOLESTEROL 56 mg/dL; LDL CHOLESTEROL,CALCULATED 122 mg/dL; LDL/HDL RATIO 2.2 (<4.4); POTASSIUM 3.6 mmol/L (3.5-4.5); SODIUM 138 mmol/L (135-145); TOTAL PROTEIN 7.3 g/dL (6.4-8.9); TRIGLYCERIDES 68 mg/dL (48-352); VLDL CHOLESTEROL 14 mg/dL
[2023-07-31 10:30] LABS: THYROID STIMULATING HORMONE 0.96 uIU/mL (0.34-5.60)
== END 2023-07-31 09:50 | disposition home or self-care (01) ==
LOC: LAB 09:49
PROVIDERS: ATTEND Physician Assistant Medical
DX: Z00.00 Encounter for general adult medical examination without abnormal findings (principal)
CPT/HCPCS: 36415; 80053; 80061; 83721; 84443; 85025

== ENCOUNTER 2025-01-24 22:56 | Inpatient (IN) ==
[2025-01-24] MEDS ORDERED: CALCIUM CARBONATE CHEW 500 MG TABLET PO PRN (23:23)
[2025-01-24] MEDS ORDERED: SODIUM CHLORIDE FLUSH 0.9% 10 ML SYRINGE IVP PRN (23:23)
[2025-01-24] MEDS ORDERED: METHYLERGONOVINE 0.2 MG/ML VIAL IM PRN (23:23)
[2025-01-24] MEDS ORDERED: hydrALAZINE INJ 20 MG/ML VIAL IVP PRN (23:23)
[2025-01-24] MEDS ORDERED: TERBUTALINE 1 MG/ML VIAL SUBQ PRN (23:23)
[2025-01-24] MEDS ORDERED: LACTATED RINGERS 1,000 ML IV PRN (23:23)
[2025-01-24] MEDS ORDERED: ONDANSETRON ODT 4 MG TABLET PO PRN (23:23)
[2025-01-24] MEDS ORDERED: OXYTOCIN 10 UNIT/ML VIAL IM PRN (23:23)
[2025-01-24] MEDS ORDERED: LABETALOL 20 MG/4 ML SYRINGE IVP PRN ×3 (23:23)
[2025-01-24] MEDS ORDERED: fentaNYL 100 MCG/2 ML VIAL IVP PRN (23:23)
[2025-01-24] MEDS ORDERED: DOCUSATE SODIUM 100 MG CAPSULE PO PRN (23:23)
[2025-01-24] MEDS ORDERED: ACETAMINOPHEN 500 MG TABLET PO PRN ×2 (23:23)
[2025-01-24] MEDS ORDERED: METOCLOPRAMIDE 10 MG TABLET PO PRN (23:23)
--- NOTE | 2025-01-24 23:27 | HISTORY & PHYSICAL EXAMINATION ---
Admit History Smoking Status: Never smoker Other Maternal History Other Maternal History: Patient is a 29-year-old -0-0-1 at 30 weeks 1 day gestation presenting today for labor. She started lucy mildly this morning been more regula rly several hours ago. At about 2245, her water broke and contractions became much more intense.. She has good movement. No AGUILLON/BV or RUQP. No vaginal bleeding. Denies nausea and vomiting. Denies urinary urgency or dysuria. All other symptoms reviewed and were negative except per HPI. Course LMP: unknown CHARITY by LMP: unknown US: 06/21/2024 @ 7+1 Final CHARITY:02/06/2025 FOB - Ezio. both Ezio and Dayna work mostly from home although Ezio travels often. Dayna's family is on [place]. Daughter born 09/17/22 in [facility] by Dr. Pascal, c/b HTN on nifedipine. Induced at 39 wk. bled 1800 cc from ob lacerations. no transfusion needed. LDASA started at 22 weeks #Bilobed placenta with velamentous cord insertion. #History of hemorrhage -From laceration, unlikely to reoccur. -Type and cross at admission #Chronic hypertension: Previously in nifedipine. Normotensive this . -24-hour urine too low to result - Delivery between 38 and 39 weeks depending on blood pressures. - EFW on 01/14: 3228 g, 75th percentile. TALAT 8.3 cm, MVP 4.1 cm. #A1GDM: Normal logs, now fasting checks. subchorionic bleeding (Resolved): Slowed at 12 weeks, occasional spotting. Bleeding resolved. -[facility] visits show continued shrinking. Oligohydraminos (Resolved): -Diagnosed 12/27/2024 at [facility]. TALAT 6.5, MVP: 2.7 cm. -Weekly TALAT Pre- Weight: 160lb BMI: 25 Blood type:A+ Antibody Screen: neg CBC: 13.3/27.8/ 260 RUB: immune VZV: immune HBsAg: neg HepC: NR RPR: NR HIV: NR Flu: 12/19/24 Covid: 12/09/24 PAP: 11/02/22-Normal GC/CT: Negative HSV: denies Genetic testing:NIPT- neg Early Glucola: FAS: Placenta: posterior w/o previa Cord: 3VC TALAT: wnl EFW: 312g, 97% Velamentous cord 50gm OGCT: 142 3HR GTT: 11/19 TDAP: 11/18 Breast Pump: 11/18 RSV: 12/19/24 CBC:H/H/PLT-11.2/32.7/169 RPR: NR EPDS: GBS: Negative Delivery plan: 37-39 week IOL PP BC: Postplacental Mirena NST Procedure NST Procedure: NST Procedure Start Time 11:30 Stop Time 11:54 Meds/Allgy Home Medications Ambulatory Orders Medication Instructions Recorded Confirmed cetirizine 10 mg capsule (Zyrtec) 10 mg PO QDAY PRN 01/22/25 omega 3-hsz-sou-fish oil 300 1 cap PO QDAY 04/15/24 mg-1,000 mg capsule (Fish Oil) vits no.126-ferrous fum tab PO 04/15/2401/22 28 mg iron-folic acid 800 mcg tablet (Classic ) docusate sodium 50 mg capsule 50 mg PO QDAY 07/09/24 1 03/24/24 (Stool Softener) Held on 12/19/24. Instructions: Per Patient blood sugar diagnostic (Blood #120 ea 11/19/24 5 Glucose Test strips) blood-glucose meter (Blood Glucose #1 ea 11/19/2412/29 Monitoring kit) lancets 33 gauge #120 ea 11/19/24 01/22/25 psyllium husk [Metamucil PO 12/19/24 01/22/25 [facility] Fiber] Allergies Allergies Allergy/AdvReac Type Severity Reaction Status Date / Time Penicillins Allergy Hives Verified 01/22/25 11:16 PFSH Active Problems All Active Problems (Updated 01/24/25 @ 23:50 by Harpreet Pascal MD) Rupture of amniotic sac less than 24 hours prior to the onset of labor (Acute) Uterine contractions (Acute) 38 weeks gestation of (Acute) Supervision of high risk in third trimester (Acute) Chronic hypertension affecting (Acute) White classification A1 gestational diabetes mellitus (GDM), diet controlled (Acute) Chronic hypertension (Acute) Placenta succenturiata (Acute) Velamentous insertion of umbilical cord (Acute) Medical History Medical History (Updated 01/24/25 @ 23:50 by Harpreet Pascal MD) Threatened Supervision of high risk in second trimester Oligohydramnios antepartum Abnormal glucose affecting Encounter for supervision of normal first , unspecified trimester test positive Delivery outcome of single liveborn infant Hx of recurrent urinary tract infection Yeast infection History of IBS Surgical History Surgical History History of wisdom tooth extraction Family History Family History Paternal grandmother Uterine cancer Aunt Breast cancer Aunt Lung cancer Seizure Aortic aneurysm Uncle Anxiety Depressed Diabetes Father Skin cancer Hyperlipidemia Paternal grandfather Depressed Anxiety Skin cancer Maternal grandmother High blood pressure Social History Social History (Updated 11/04/24 @ 09:59 by Harpreet Pascal MD) Smoking Status: Never smoker Do you dip or chew tobacco?: No Do you vape?: No Patient requests smoking cessation consult: No Initiate information on smoking cessation: No Living arrangement: At home Living Condition: With spouse/s.o. ETOH Use: None Substance Use: denies use Are you sexually active?: Yes Review of Systems Status of ROS: 10 or more systems reviewed and unremarkable except as noted in history and below Physical Other Notes Labor Progress Note/Additional Text: General: Alert, oriented, no acute distress Head: Normal cephalic atraumatic Eyes: PERRLA, extraocular motions intact. Respiratory: Normal rate of respiration. No accessory muscle use, normal respiratory effort. Abdomen: Gravid, nontender, nondistended Extremities: Normal range of motion Neuro: Oriented x3. Normal movements Psych: Appropriate mood and affect. Normal judgment and insight SVE: 6/75/-1 FHT: 145 BPM baseline, moderate variability, accelerations present, no decelerations. Category 1 [place]: 1 to 2 minutes Plan for Labor Plan For Labor I expect patient to be DC'd or transferred within 96 hours.: Yes Conclusion/Plan Problem List (1) Rupture of amniotic sac less than 24 hours prior to the onset of labor: Plan: Admit to L&D, admit labs, epidural at patient's request. Patient in active labor and lucy regularly. Anticipate . Category 1 heart tracing. Lucy regularly on her own. GBS is negative. Desires post placental IUD Gentle cord or no traction after delivery. Qualifiers: PROM gestational age: full term Qualified Code(s): O42.02 - Full-term premature rupture of membranes, onset of labor within 24 hours of rupture (2) Uterine contractions: (3) 38 weeks gestation of : (4) Velamentous insertion of umbilical cord: Qualifiers: Trimester: third trimester Qualified Code(s): O43.123 - Velamentous insertion of umbilical cord, third trimester (5) Placenta succenturiata: Qualifiers: Trimester: third trimester Qualified Code(s): O43.193 - Other malformation of placenta, third trimester (6) Chronic hypertension affecting : (7) White classification A1 gestational diabetes mellitus (GDM), diet controlled: (8) Supervision of high risk in third trimester: (9) Chronic hypertension:
--- OUTSIDE RECORDS SUMMARY | 2025-01-24 23:30 | EXTERNAL MEDICAL SUMMARY RPT | Continuity of Care Document ---
Author Organization [place] Address [address] [address] Phone Problems date description facility 2024-10-31 12:55 Supervision of high risk , unspecified, second [facility] 2024-11-06 07:55 Unspecified pre-exis ting hypertension complicating , second trimester [facility] 2024-11-06 07:56 Essential (primary) hypertensio n [facility] 2024-11-11 09:30 Supervision of high risk , unspecified, second trimester [facility] 2024-11-11 09:30 Encounter for superv ision of normal , unspecified, unspecified [facility] 2024-11-12 00:03 Supervision of high risk , unspecified, second trimester [facility] 2024-11-12 00:03 Encounter for superv ision of normal , unspecified, unspecified trimester [facility] 2024-11-12 15:45 Abnormal glucose complicating p [facility] 2024-11-13 09:56 Supervision of high risk , unspecified, second trimester [facility] 2024-11-18 10:28 Encounter for immunization id [facility] 2024-11-19 08:05 Abnormal glucose complicating p [facility] 2024-11-19 09:19 Abnormal glucose complicating p [facility] 2024-11-20 00:04 Abnormal glucose complicating p [facility] 2024-11-20 14:18 Supervision of high risk , unspecified, third trimester [facility] 2024-11-20 14:18 Encounter for immunization id [facility] 2024-11-26 08:54 Essential (primary) hypertensio n [facility] 2024-11-26 09:44 Essential (primary) hypertensio n [facility] 2024-11-27 00:05 [facility] 14:35 Essential (primary) [facility] 2024-11-27 16:27 Encounter for immunization [facility] 2024-11-29 14:03 Encounter for immunization [facility] 2024-11-29 14:03 Encounter for survei llance of injectable contraceptive [facility] 2024-12-04 13:24 Gestational diabetes mellitus in , diet controlled [facility] 2024-12-09 09:29 Encounter for remova l of intrauterine contraceptive device [facility] 2024-12-09 09:29 Encounter for contraceptive man agement, unspecified [facility] 2024-12-16 14:45 Gestational [pregnan cy-induced] hypertension without significant proteinuria, third trimester [facility] 2024-12-16 14:45 Gestational diabetes mellitus in , diet controlled [facility] 2024-12-19 13:21 Encounter for immunization [facility] 2024-12-19 13:22 Encounter for immunization [facility] 2024-12-19 13:35 Encounter for immunization [facility] 2024-12-23 13:17 Other specified preg hernesto related conditions, third trimester [facility] 2024-12-23 13:17 Encounter for immunization [facility] 2024-12-30 07:50 Supervision of high risk , unspecified, second trimester [facility] 2024-12-30 13:35 Essential (primary) hypertensio Pending sale to [facility] 2025-01-01 13:23 Essential (primary) hypertensio Pending sale to [facility] 2025-01-01 13:23 Gestational diabetes mellitus in , diet controlled [facility] 2025-01-02 09:23 Supervision of high risk , unspecified, second trimester [facility] 2025-01-02 09:37 Supervision of high risk , unspecified, second trimester [facility] 2025-01-02 09:59 [facility]02 09:59 Gestational diabetes mellitus in , diet controlled [facility] 2025-01-02 09:59 Velamentous insertio n of umbilical cord, unspecified trimester [facility] 2025-01-03 15:32 Supervision of high risk , unspecified, second trimester [facility] 2025-01-04 00:02 Supervision of high risk , unspecified, second trimester [facility] 2025-01-06 13:28 Essential (primary) hypertensio n [facility] 2025-01-06 13:28 Unspecified pre-exis ting hypertension complicating , third trimester [facility] 2025-01-06 13:28 Gestational diabetes mellitus in , diet controlled [facility] 2025-01-06 13:28 Velamentous insertio n of umbilical cord, unspecified trimester [facility] 2025-01-06 16:04 Essential (primary) hypertensio n [facility] 2025-01-06 16:04 Gestational diabetes mellitus in , diet controlled [facility] 2025-01-06 16:04 Oligohydramnios, uns pecified trimester, not applicable or unspecified [facility] 2025-01-09 09:44 Essential (primary) hypertensio n [facility] 2025-01-09 09:44 Gestational diabetes mellitus in , diet controlled [facility] 2025-01-09 09:44 Encounter for screeni ng for Streptococcus B [facility] 2025-01-09 10:49 Essential (primary) hypertensio n [facility] 2025-01-09 10:49 Gestational diabetes mellitus in , diet controlled [facility] 2025-01-09 10:49 Encounter for screeni ng for Streptococcus B [facility] 2025-01-10 00:04 Essential (primary) hypertensio n [facility] 2025-01-10 00:04 Gestational diabetes mellitus in , diet controlled [facility] 2025-01-10 00:04 Encounter for screeni ng for Streptococcus B [facility] 2025-01-10 12:00 Gestational diabetes mellitus in , diet controlled [facility] 2025-01-10 12:01 Essential (primary) hypertensio n [facility] 2025-01-10 12:01 Gestational diabetes mellitus in , diet controlled [facility] 2025-01-10 12:01 Oligohydramnios, uns pecified trimester, not applicable or unspecified [facility] 2025-01-13 07:33 Supervision of high risk , unspecified, second trimester [facility] 2025-01-16 09:19 Essential (primary) hypertensio n [facility] 2025-01-16 09:19 Gestational diabetes mellitus in , diet controlled [facility] 2025-01-22 11:59 Gestational diabetes mellitus in , diet controlled [facility] 2025-01-24 10:01 Essential (primary) hypertensio n [facility] 2025-01-24 10:01 Pre-existing essenti al hypertension complicating , third trimester [facility] 2025-01-24 10:01 Gestational diabetes mellitus in , diet controlled [facility] Results/Labs test date facility value unit notes Result panel 1 HGB - HEMOGLOBIN 2024-11-11 10:38 [facility] 11.2 g/dl (missing) RED CELL DISTRIBUTION WIDTH 2024-11-11 10:38 [facility] 13.6 % (missing) GLUCOSE,1H PP 50GM DOSE 2024-11-11 10:38 [facility] 142 mg/dl 50g Challenge 1 hr post Glucose < 140 mg/dL Reference: [place] [employer] As of August 2022 testing method has changed, this may include reference ranges. PLT - PLATELET COUNT 2024-11-11 10:38 [facility] 169 10 3/ul (missing) RED BLOOD COUNT 2024-11-11 10:38 [facility] 3.39 10 6/ul (missing) HCT - HEMATOCRIT 2024-11-11 10:38 [facility] 32.7 % (missing) MEAN CORPUSCULAR HEMOGLOBIN 2024-11-11 10:38 [facility] 33.0 pg (missing) MEAN CORPUSCULAR HGB CONC 2024-11-11 10:38 [facility] 34.3 g/dl (missing) WHITE BLOOD COUNT 2024-11-11 10:38 [facility] 8.2 x10 3/ul (missing) MEAN PLATELET VOLUME 2024-11-11 10:38 [facility] 9.5 fl (missing) MEAN CORPUSCULAR VOLUME 2024-11-11 10:38 [facility] 96.5 fl (missing) RPR 2024-11-11 10:38 [facility] Non Reactive (missing) Performed at: [facility] [address] [facility] [address], [place], [place] [id number] Information Architect: Ryan Ko MD, Phone: [phone] Result panel 2 GLUCOSE TOLERANCE 3HR 2024-11-19 08:13 [facility] (missing) (missing) GLU FAST 78 mg/dL Col Time:0815 GLU 1H 184 mg/dL Col Time:0900 GLU 2H 155 mg/dL Col Time:1022 GLU 3H 76 mg/dL Col Time:1117 DOSE 100 g Col Time:0815 Glucose Concentration Guidelines Fasting <95 mg/dL 1 hr post challenge <180 mg/dL 2 hr post challenge <155 mg/dL 3 hr post challenge <140 mg/dL Glucose concentration greater than or equal to these valuesat TWO or more time points is a positive test. Reference: [facility] Result panel 3 UPE PLEASE NOTE 2024-11-26 07:30 [facility] (missing) (missing) Please note: Protein electrophoresis scan will follow via computer, mail, or monitor technician delivery. Performing Labs 01: [facility], [facility] [address] [facility] [address], [place] [address] Dir: Ryan Ko MD 02: [facility], [address] [facility] [address], [place] [address] Dir: Diane Martinez MD For inquiries, the physician may contact Branch: [phone] Lab: [phone] PROTEIN URINE 24HR 2024-11-26 07:30 [facility] (missing) (missing) Prot,24hr calculated: <121 mg/24 hr Reference Interval: 30-150 PROTEIN TOTAL URINE 2024-11-26 07:30 [facility] (missing) (missing) [id number] STRT 11/25/24 0730 END 11/26/24 0730 HT 5'7' WT 179LBS Protein,Total,Urine Result: <4.0 mg/dL Verified by repeat analysis Reference Interval: Not Estab. [id number] IN URINE 2024-11-26 07:30 [facility] 0 % (missing) (missing) [id number] IN URINE 2024-11-26 07:30 [facility] 0 % (missing) (missing) BETA GLOBULIN URINE 2024-11-26 07:30 [facility] 0 % (missing) (missing) GAMMA GLOBULIN URINE 2024-11-26 07:30 [facility] 0 % (missing) (missing) ALBUMIN URINE 2024-11-26 07:30 [facility] 100 % (missing) (missing) M-SPIKE % URINE 2024-11-26 07:30 [facility] Not observed (missing) (missing) M-SPIKE MG/24 HR 2024-11-26 07:30 [facility] TNP (missing) (missing) Result panel 4 GBSPCR,REFLEX IF PEN ALLERGIC 2025-01-09 09:44 [facility] NEGATIVE (missing) VAGINAL/R ECTAL Social History date description facility
[2025-01-24 23:41] LABS: HCT - HEMATOCRIT 38.2 % (37.0-47.0); HGB - HEMOGLOBIN 13.0 g/dL (12.0-16.0); MEAN PLATELET VOLUME 10.6 fL (7.9-10.8); NRBC ABSOLUTE COUNT (AUTO) 0.00 x10^3/uL; NUCLEATED RED BLOOD CELLS AUTO 0.0 /100WBC; PLT - PLATELET COUNT 180 10^3/uL (130-450); RED CELL DISTRIBUTION WIDTH 13.3 % (12.0-15.0)
[2025-01-24] MEDS: LACTATED RINGERS 500 ML IV ONE (23:45)
[2025-01-24] MEDS ORDERED: SODIUM CHLORIDE FLUSH 0.9% 10 ML SYRINGE IVP SCH (23:45)
[2025-01-24] MEDS ORDERED: ROPIVACAINE 0.2% 200 MG/100 ML BAG EP ONE (23:55)
[2025-01-25] MEDS ORDERED: LEVONORGESTREL 20 MCG/24H IUD IY ONE
[2025-01-25] MEDS ORDERED: NALBUPHINE 10 MG/ML AMP IVP PRN (00:23)
[2025-01-25] MEDS ORDERED: NALOXONE 0.4 MG/ML VIAL IVP PRN ×2 (00:23→05:07)
[2025-01-25] MEDS ORDERED: ONDANSETRON 4 MG/2 ML VIAL IVP PRN ×2 (00:23→05:07)
[2025-01-25] MEDS ORDERED: METOCLOPRAMIDE 10 MG/2 ML VIAL IVP PRN (00:23)
[2025-01-25] MEDS ORDERED: ePHEDrine 50 MG/ML VIAL IVP PRN (00:23)
[2025-01-25] MEDS ORDERED: ROPIVACAINE 0.2% 200 MG/100 ML BAG EP PRN (00:23)
--- NOTE | 2025-01-25 00:25 | ANESTHESIA PROCEDURE NOTE ---
Pre-Anesthesia VS, & Labs Diagnosis Surgical Diagnosis:: term labor pain Procedure Procedure: epidural for Vitals Vital Signs: Temp Pulse Resp BP 37.2 C 99 18 143/95 H 01/24/25 23:21 01/24/25 23:21 01/24/25 23:21 01/24/25 23:21 NPO Last Fluid Intake: t/o noc Last Food Intake: dinner Is Patient ?: Yes Lab Results Current Lab Results: Laboratory Tests 01/24/25 23:30: WBC 12.7 H, RBC 4.03 L, Hgb 13.0, Hct 38.2, MCV 94.8, MCH 32.3 H , MCHC 34.0, RDW 13.3, Plt Count 180, MPV 10.6, Neut # (Auto) 8.7 H, Lymph # (Auto) 2.6, [place] # (Auto) 1.2 H, Eos # (Auto) 0.1, Baso # (Auto) 0.0, Absolute Nucleated RBC 0.00, Nucleated RBC % 0.0 Lab results reviewed: Yes 01/24/25 23:30 Meds/Allgy Home Medications Ambulatory Orders Medication Instructions Recorded Confirmed cetirizine 10 mg capsule (Zyrtec) 10 mg PO QDAY PRN 01/22/25 omega 8-qhe-jkh-fish oil 300 1 cap PO QDAY 04/15/24 mg-1,000 mg capsule (Fish Oil) vits no.126-ferrous fum tab PO 04/15/2401/22 28 mg iron-folic acid 800 mcg tablet (Classic ) docusate sodium 50 mg capsule 50 mg PO QDAY 07/09/24 1 03/24/24 (Stool Softener) Held on 12/19/24. Instructions: Per Patient blood sugar diagnostic (Blood #120 ea 11/19/24 5 Glucose Test strips) blood-glucose meter (Blood Glucose #1 ea 11/19/2412/29 Monitoring kit) lancets 33 gauge #120 ea 11/19/24 01/22/25 psyllium husk [Metamucil PO 12/19/24 01/22/25 [facility]] Allergies Allergies Allergy/AdvReac Type Severity Reaction Status Date / Time Penicillins Allergy Hives Verified 01/22/25 11:16 PFS Active Problems All Active Problems (Updated 01/24/25 @ 23:50 by Harpreet Pascal MD) Rupture of amniotic sac less than 24 hours prior to the onset of labor (Acute) Uterine contractions (Acute) 38 weeks gestation of (Acute) Supervision of high risk in third trimester (Acute) Chronic hypertension affecting (Acute) White classification A1 gestational diabetes mellitus (GDM), diet controlled (Acute) Chronic hypertension (Acute) Placenta succenturiata (Acute) Velamentous insertion of umbilical cord (Acute) Medical History Medical History (Updated 01/24/25 @ 23:50 by Harpreet Pascal MD) Oligohydramnios antepartum Abnormal glucose affecting Supervision of high risk in second trimester Encounter for supervision of normal first , unspecified trimester Threatened test positive Delivery outcome of single liveborn infant Hx of recurrent urinary tract infection Yeast infection History of IBS Surgical History Surgical History History of wisdom tooth extraction Family History Family History Paternal grandmother Uterine cancer Aunt Breast cancer Aunt Lung cancer Seizure Aortic aneurysm Uncle Anxiety Depressed Diabetes Father Skin cancer Hyperlipidemia Paternal grandfather Depressed Anxiety Skin cancer Maternal grandmother High blood pressure Social History Social History (Updated 11/04/24 @ 09:59 by Harpreet Pascal MD) Smoking Status: Never smoker Do you dip or chew tobacco?: No Do you vape?: No Patient requests smoking cessation consult: No Initiate information on smoking cessation: No Living arrangement: At home Living Condition: With spouse/s.o. ETOH Use: None Substance Use: denies use Are you sexually active?: Yes Anesthesia Exam (Expanded) Exam General: Alert, Oriented x3, Cooperative and Mild distress Dental: WNL Neck Mobility: Normal Respiratory: No respiratory distress Cardiovascular: Regular rate Neurological: Normal speech Mental/Cognitive Status: Alert/Oriented X3 and Normal for patient Cognitive Status: Within normal limits Exam Exam Vital Signs: Vital Signs x48h Temp Pulse Resp BP 01/24/25 23:21 37.2 C 99 18 143/95 H Plan Problem List (1) Rupture of amniotic sac less than 24 hours prior to the onset of labor: Plan: Admit to L&D, admit labs, epidural at patient's request. Patient in active labor and danny regularly. Anticipate . Category 1 heart tracing. Danny regularly on her own. GBS is negative. Desires post placental IUD Gentle cord or no traction after delivery. Qualifiers: PROM gestational age: full term Qualified Code(s): O42.02 - Full-term premature rupture of membranes, onset of labor within 24 hours of rupture (2) Uterine contractions: (3) 38 weeks gestation of : (4) Velamentous insertion of umbilical cord: Qualifiers: Trimester: third trimester Qualified Code(s): O43.123 - Velamentous insertion of umbilical cord, third trimester (5) Placenta succenturiata: Qualifiers: Trimester: third trimester Qualified Code(s): O43.193 - Other malformation of placenta, third trimester (6) Chronic hypertension affecting : (7) White classification A1 gestational diabetes mellitus (GDM), diet controlled: (8) Supervision of high risk in third trimester: (9) Chronic hypertension: Plan Anesthesia Type: Epidural Consent for Procedure(s) Verified and Reviewed: Yes Code Status: Attempt Resuscitation ASA Classification ASA classification: 2-Mild systemic disease Is this case an emergency?: No
[2025-01-25 00:38] LABS: ALT ALANINE AMINOTRANSFERASE 6.0 IU/L (10-60); AST ASPARTATE AMINOTRANSFERASE 13.0 IU/L (10-42); BUN - BLOOD UREA NITROGEN 13.0 mg/dL (6-20); CARBON DIOXIDE - CO2 20.0 mmol/L (21-32); CREATININE 0.6 mg/dL (0.6-1.3); GFR - MDRD 117.0 (>89)
[2025-01-25] MEDS: OXYTOCIN/SODIUM CHLORIDE 500 ML IV PRN (03:05)
[2025-01-25] MEDS: TRANEXAMIC ACID IN NACL 1,000 MG/100 ML BAG IV PRN (03:12)
[2025-01-25] MEDS ORDERED: SODIUM CHLORIDE 0.9% 1,000 ML ONE ×2 (04:19→04:49)
[2025-01-25] MEDS: CARBOPROST TROMETHAMINE 250 MCG/ML VIAL IM PRN (04:29)
[2025-01-25] MEDS ORDERED: WITCH HAZEL/GLYCERIN 1 PAD TOP PRN (05:07)
[2025-01-25] MEDS ORDERED: OXYTOCIN/SODIUM CHLORIDE 500 ML IV PRN (05:07)
[2025-01-25] MEDS ORDERED: HYDROCORTISONE 1% CREAM 28 GM TUBE TOP PRN (05:07)
[2025-01-25] MEDS ORDERED: hydrALAZINE INJ 20 MG/ML VIAL IVP PRN ×2 (05:07)
[2025-01-25] MEDS ORDERED: LABETALOL 5 MG/1 ML 20 ML MDV IVP PRN (05:07)
[2025-01-25] MEDS ORDERED: SIMETHICONE CHEW 80 MG TABLET PO PRN (05:07)
[2025-01-25] MEDS ORDERED: LABETALOL 20 MG/4 ML SYRINGE IVP PRN ×2 (05:07)
--- NOTE | 2025-01-25 05:12 | DELIVERY NOTE ---
OB Labor and Delivery Note Labor Labor: Spontaneous Delivery Method Delivery Method: Spontaneous vaginal delivery Presentation Presentation: Vertex Nuchal Cord Nuchal Cord: Reduced Amniotic Fluid Description Amniotic Fluid Description: Clear Laceration Laceration: 1st degree Suture Suture Type: Vicryl Suture Size: 3-0 Delivery Outcome Delivery Outcome: Livebirth [place] : Placed in direct skin contact with mother and [place] used sex: Male Cord Cord: 3 vessels Placenta Placenta: Curettage, Manual removal and Retained Estimated Blood Loss Estimated Blood Loss (in cc): 1,800 Post Delivery Events Post Delivery Events: Hemorrhage and Retained placenta Delivery Comments (Free Text/Narrative) Delivery Comments (Free Text/Narrative): Preoperative Diagnoses Term labor 38 weeks gestation Chronic hypertension A1 gestational diabetes managed with diet and exercise Velamentous cord insertion Succenturiate placenta Postoperative Diagnoses Same Status post spontaneous vaginal delivery Delivery of live peterson Retained placenta with manual extraction hemorrhage Summary Patient presented at 38 weeks gestation in active labor with rupture of membranes. She was 6 centimeters on arrival. She was typed and crossed for packed red blood cells. She had overall category 1 tracing with an occasional variable deceleration. was complicated by chronic hypertension not on medications, A1 gestational diabetes not on medications, velamentous cord insertion with succenturiate placenta. She received an epidural for pain control and was lucy regularly until complete and ready to push. Delivery Summary: Patient was placed in the dorsal lithotomy position. Upon maternal pushing the head was delivered atraumatically followed by the anterior shoulder, posterior shoulder, then the remainder of the 's body. Nuchal cord was reduced. A male infant was delivered with APGARS of 8 at 1 minute and 9 at 5 minutes. The was placed on its mother's chest . Oxytocin was administered through her IV. Delayed cord clamping performed, and the umbilical cord was clamped times two and cut. Due to the velamentous cord insertion, a cord clamp was hung on the cord and gentle uterine massage while oxytocin was running. I did a perineal exam, and a first-degree midline laceration was noted with a small amount of skin opening. This was repaired with a small running suture of 3-0 Vicryl. After about 30 minutes, patient was counseled on possible manual extraction. I did apply gentle traction to the cord, but there was no movement, so about 45 minutes after delivery, we started a manual extraction. The manual extraction showed a densely adherent placenta difficult to removed. The main lobe of the placenta was removed mostly intact, but with several other pieces removed subsequently, but the succenturiate lobe was difficult. We then used a curette to separate part of the lobulated return to manual separation of the succenturiate lobe. This was then examined and found to be complete. Patient then had he mowed dynamic changes with hypotension and tachycardia as well as feeling nauseated. At that point we had an estimated blood loss of 1500 mL the blood previously ordered was requested for administration. She received 2 units quickly and vital signs stabilized and she felt better. A careful curetting was performed without any noticeable uterine tissue. The patient received 1 dose of Hemabate. Bleeding was stable at that time. Placenta was not sent to pathology. Uterine massage was performed and again the uterus was deemed firm. Upon re-inspection the patient was hemostatic. Uterus again massaged and found to be firm. Needle and sponge counts were correct. Patient was stable and allowed to recover in L&D room. Infant was stable and remained in room with mother. weight is pending at this time.
[2025-01-25] MEDS: DOXYCYCLINE 100 MG TABLET PO SCH (05:47)
[2025-01-25] MEDS: IBUPROFEN 600 MG TABLET PO PRN (05:48)
[2025-01-25] MEDS: ACETAMINOPHEN 500 MG TABLET PO PRN (05:48)
[2025-01-25 06:01] LABS: INR 1.0 (0.8-1.2); PT - PROTHROMBIN TIME 11.1 secs (9.9-12.6)
[2025-01-25 08:50] LABS: HCT - HEMATOCRIT 34.4 % (37.0-47.0); HGB - HEMOGLOBIN 11.8 g/dL (12.0-16.0); MEAN PLATELET VOLUME 10.5 fL (7.9-10.8); NRBC ABSOLUTE COUNT (AUTO) 0.00 x10^3/uL; NUCLEATED RED BLOOD CELLS AUTO 0.0 /100WBC; PLT - PLATELET COUNT 148 10^3/uL (130-450); RED CELL DISTRIBUTION WIDTH 13.6 % (12.0-15.0)
[2025-01-25 08:51] LABS: SLIDE REVIEW? Indicated
[2025-01-25] MEDS ORDERED: DOCUSATE SODIUM 100 MG CAPSULE PO SCH (09:00)
[2025-01-25 09:04] LABS: PLATELET ESTIMATE, MANUAL NORMAL (130-450,000) (NORMAL); PLATELET MORPHOLOGY NORMAL APPEARANCE (NORMAL); RBC MORPHOLOGY (MULTIPLE) NORMAL APPEARANCE (NORMAL)
[2025-01-25] MEDS: FAMOTIDINE 20 MG/2 ML VIAL IVP SCH (20:33)
[2025-01-25] MEDS: LEVONORGESTREL 20 MCG/24H IUD IY ONE (20:56)
[2025-01-26 07:03] LABS: HCT - HEMATOCRIT 32.0 % (37.0-47.0); HGB - HEMOGLOBIN 10.6 g/dL (12.0-16.0); MEAN PLATELET VOLUME 9.9 fL (7.9-10.8); NRBC ABSOLUTE COUNT (AUTO) 0.00 x10^3/uL; NUCLEATED RED BLOOD CELLS AUTO 0.0 /100WBC; PLT - PLATELET COUNT 145 10^3/uL (130-450); RED CELL DISTRIBUTION WIDTH 14.7 % (12.0-15.0)
--- NOTE | 2025-01-26 08:17 | Discharge Summary ---
Discharge Summary Admit Date: 01/24/25 Discharge Date: 01/26/25 Discharging Provider: Harpreet Pascal MD DIAGNOSES Admission Diagnoses: 38 weeks gestation Term labor Chronic hypertension affecting , not on medications A1 GDM Succenturiate placenta Velamentous cord insertion Discharge Diagnoses with Status of Each Condition: Delivery of live peterson Status post Metanium special delivery hemorrhage Retained placenta with manual extraction HPI History of Present Illness: Subjective Patient reports she is doing well. Lochia appropriate. Denies heavy bleeding. Ambulating. Pelvic and abdominal pain well-controlled. Tolerating oral intake. Diet: Regular. Voiding without difficulty. Passing flatus. Denies BM. Patient is bonding with baby in room Breast feeding going well. Denies feeling lightheaded, dizzy or excessively fatigued. Control: Interval Mirena Objective General: Alert, oriented, no apparent distress. Cardiovascular: Regular rate. Regular rhythm. Lungs: No increased work of breathing. Abdomen: Uterus firm. Below umbilicus. No guarding or rebound. Extremities: No pain on palpation. No cords palpated. Distal pulses intact. HOSPITAL COURSE Hospital Course: Patient is admitted for term labor at 38 weeks. She progressed on her own until complete. Received an epidural for pain control. Delivery was uncomplicated, but delivery of the placenta took an exceptionally long time as we attempted minimal tension due to the velamentous cord insertion succenturiate placenta. This was followed by manual extraction and hemorrhage. She received 2 units of PRBCs. She did well with no significant bleeding and was discharged on day 1. ALLERGIES Allergies Allergy/AdvReac Type Severity Reaction Status Date / Time Penicillins Allergy Hives Verified 01/25/25 01:19 MEDICATIONS Ambulatory Orders Medication Instructions Recorded Confirmed cetirizine 10 mg capsule (Zyrtec) 10 mg PO QDAY PRN 01/22/25 omega 9-rri-sdj-fish oil 300 1 cap PO QDAY 04/15/24 mg-1,000 mg capsule (Fish Oil) vits no.126-ferrous fum tab PO 04/15/2401/22 28 mg iron-folic acid 800 mcg tablet (Classic ) docusate sodium 50 mg capsule 50 mg PO QDAY 07/09/24 1 03/24/24 (Stool Softener) psyllium husk [Metamucil PO 12/19/24 01/22/25 [facility]] PHYSICAL EXAM AT DISCHARGE Vital Signs: Vital Signs x48h Temp Pulse Resp BP Pulse Ox 01/26/25 08:17 37.2 C 77 18 120/66 98 01/26/25 03:30 37.0 C 80 17 106/64 95 LABS 01/26/25 06:55 01/24/25 23:30 FOLLOW UP Follow Up: With [facility] women's care in 1 week. TIME SPENT Time Spent in Discharge (Minutes): 30 Discharge Plan Discharge Patient Disposition: Home, Self Care Prescriptions: Continued psyllium husk [Metamucil [facility]] PO omega 2-mam-duz-fish oil [Fish Oil] 300-1,000 mg capsule 1 cap PO QDAY Zyrtec 10 mg capsule 10 mg PO QDAY PRN Classic 28 mg iron- 800 mcg tablet PO Stool Softener 50 mg capsule 50 mg PO QDAY Discontinued (DME) Blood Glucose Test Strip See Rx Instructions .MEDSUPPLY Qty: 120 3RF Rx Instructions: As directed to check blood sugar 4 times a day. (DME) blood-glucose meter [Blood Glucose Monitoring] Kit See Rx Instructions .MEDSUPPLY Qty: 1 0RF Rx Instructions: to check blood sugar 4 times a day (DME) lancets 33 gauge misc See Rx Instructions .MEDSUPPLY Qty: 120 3RF Rx Instructions: To check blood sugar four times a day Activity Restrictions: Additional Comments Diet: Regular Print Language: Palestinian Patient Instructions: After a Vaginal , Depression, ED Obstetric Endometritis Follow-up Care: Jenny Luna PA-C [Primary Care Provider, Family Practice]
[2025-01-26 08:18] VITALS: O2SAT 98
[2025-01-26 13:36] VITALS: BP 128/80; TEMP 99.3
--- NOTE | 2025-01-26 14:17 | Labor Flowsheet ---
Labor Flowsheet Datetime Report Generated by CPN: 01/26/2025 14:16 Datetime: 01/26/2025 13:05 VITAL SIGNS NBP Sys/[place]/Mean (mmHg): 128 : 80 : 90 Pulse: 85 Datetime: 01/26/2025 13:04 SpO2 (%): 99 Datetime: 01/25/2025 06:30 Temperature (C): 36.8 Temperature Route: Oral Datetime: 01/25/2025 05:15 Stage of : Recovery Datetime: 01/25/2025 03:09 LaborFlag: Labor Datetime: 01/25/2025 03:07 ASSESSMENT A Monitor Mode: Telemetry Category: Category II Comments: ind Datetime: 01/25/2025 03:05 Frequency (min): 2-3.5 Datetime: 01/25/2025 03:00 UTERINE ACTIVITY Monitor Mode: External Quality: Strong Duration (sec): 60-90 Pattern: Normal: <= 5 Contractions in 10 Minutes Resting Tone (Palpate): Relaxed FHR Baseline Rate : 140 Variability: Moderate 6-25 bpm Accelerations: 15X15 Decelerations: None Datetime: 01/25/2025 02:06 VAGINAL EXAM Dilatation (cm): 10.0 Effacement (%): 100 Station: 0 Exam by: Gwyn, MD Datetime: 01/25/2025 01:30 PATIENT CARE Oxygen Method: Room Air Datetime: 01/25/2025 01:00 Communication Comments: Pt. Handoff back to primary RN Monkia Robin, RN Datetime: 01/25/2025 00:45 Vaginal Bleeding: Normal Show Cervix, Consistency: Soft Cervix, Position: Midposition Procedures: Sterile Vag Exam I/O Interventions: Vazquez Cath Inserted Datetime: 01/25/2025 00:16 ANESTHESIA Anesthesia Plans: Epidural Epidural Procedure: Completed Epidural Procedure Other: Pump Started Datetime: 01/25/2025 00:11 Epidural Positioning: Sitting COMMUNICATION Communication: RN at Bedside Datetime: 01/25/2025 00:07 Consults: Anesthesia Datetime: 01/25/2025 00:00 Patient Care Comments: [employer] arrived for epidural Datetime: 01/24/2025 23:43 Notification Reason: Status Update; Labor Status Datetime: 01/24/2025 23:33 Anesthesia Comments: 2333, C Contreras notified to come for epidural placement Datetime: 01/24/2025 23:17 Respirations: 18 PAIN Pain Scale: 8 Pain Presence: Intermittent Pain Type: Contraction Pain Location: Abdomen Pain Coping: Breathing Through Contractions Membrane Status: Ruptured Membranes Rupture Method: Spontaneous Amniotic Fluid Color: Clear Amniotic Fluid Amount: Moderate Amniotic Fluid Odor: None Nitrazine: Positive MATERNAL ASSESSMENT Level of Consciousness: Alert DTR's/Clonus: No Clonus Headache: Denies Breath Sounds, Left: Clear and Equal Breath Sounds, Right: Clear and Equal Nausea/Vomiting: Denies RUQ Epigastric Pain: Denies Patient Position/Activity: Supine TEACHING Instructional Method: Verbal; Written Plan of Care: Plan of Care Discussed; Vaginal Delivery Unit Routine: [place] to Room; Bed; Monitoring; Safety/Fall Risk Prevention; Diet/Nutrition Services; Bathroom Privileges Labor/Induction: Labor Stages Datetime: 01/24/2025 23:10 Membranes Ruptured Date/Time: 01/24/2025 22:45
--- OUTSIDE RECORDS SUMMARY | 2025-02-01 11:13 | EXTERNAL MEDICAL SUMMARY RPT | Clinical Summary ---
[facility] Organization [facility] Address [address] [place] [address] Care Team Providers Care Photoengraving Proofer Name Role Phone Jacey Luna PA-C Primary Care Provider [phone]- [phone] Allergies Active Allergy Reactions Criticality Noted Date Comments Penicillins 01/12/2011 Medications Vit-Fe Fumarate-FA ( VITAMIN OR) Take by mouth. Active aspirin 81 MG chewable tablet Chew and swallow 1 tablet (81 mg) by mouth daily. Active Active Problems Problem Noted Date Diagnosed Date Diet controlled gestational diabetes mellitus (GDM) in third trimester 01/14/2025 Vaginal bleeding in 10/29/2024 Velamentous insertion of umbilical cord, antepar [place] 10/29/2024 Preexisting hypertension complicating , antepartum 10/29/2024 History of hemorrhage, currently preg nant 10/29/2024 Ovarian cyst affecting , antepartum 03/2024 Supervision of high risk , antepartum 0 10/29/2024 Anomaly of placenta, antepartum 10/29/2024 Overview (10/29/2024): Bilobed placenta Anterior and Left Lateral connected by small tissue bridge Velamentous CI between with vessels leading to both lobes, far away from internal cervical os Small placental hematoma 3.3 x 4.1 x 3.7 cm adjacent to Placental venous shaffer Estimated Date of Delivery Comme nts Yes 02/06/2025 Based on Ultraso und Encounters Date Type Department Care Team Description 01/14/2025 2:30 PM PST Telemedicine [facility] [address] [place] [address] Cosme Cortez MD Dx: Velamentous insertion of umbilical cord, antepartum (HCC) (Primary Dx) Discharge Disposition: HOME/SELF CARE 01/14/2025 1:00 PM PST Office Visit [facility] [address] [place] [phone] Delma Isaacs RN Dx: Velamentous insertion of umbilical cord, antepartum (HCC) Discharge Disposition: HOME/SELF CARE 01/14/2025 12:54 PM PST - 01/14/2025 11:59 PM PST Hospital Encounter [facility] Ultrasound [address] [place] [address] Dx: Supervision of high risk , antepartum (HCC) Discharge Disposition: HOME/SELF CARE 12/27/2024 10:30 AM PDT Clinical Support Visit [facility] [address] [address] Delma Isaacs RN Non-stress Test Discharge Disposition: HOME/SELF CARE 12/27/2024 10:00 AM PDT Telemedicine [facility] [address] [place] [address] Cosme Cortez MD Dx: Velamentous insertion of umbilical cord, antepartum (HCC) (Primary Dx) Discharge Disposition: HOME/SELF CARE 12/27/2024 9:02 AM PDT - 12/27/2024 11:59 PM PDT Hospital Encounter [facility] Ultrasound [address] [address] Dx: Vaginal bleeding in (HCC) Discharge Disposition: HOME/SELF CARE 11/29/2024 2:00 PM PDT Telemedicine [facility] [address] [place] [address] Cosme Cortez MD Dx: Supervision of high risk , antepartum (HCC) (Primary Dx) Discharge Disposition: 01 HOME/SELF CARE 11/29/2024 12:49 PM PDT - 11/29/2024 11:59 PM PDT Hospital Encounter Medicine [facility] Ultrasound [address] [place] [phone] Dx: Vaginal bleeding in (HCC) Discharge Disposition: 01 HOME/SELF CARE from Last 3 Months Immunizations Immunization Administration Dates Next Due COVID-19 Moderna mRNA monova lent 12 yrs and older 06/18/2020,05/21/2020 COVID-19 Pfizer mRNA seasona l 12 yrs and older (Comirnaty) 12/01/2023 DTP 03/09/1998,1993,1993 HPV, unspecified 02/26/2008,10/09/2007, 8 Hepatitis B, unspecified 07/10/2000,11/27,1993,03/24 Hib, unspecified 1993,1993 Influenza live nasal trivale nt (FluMist) 12/02/2009 Influenza quadrivalent 12/11/2020 Influenza quadrivalent PF 12/08/2021,05/2021,11/17/2019,12/04 Influenza trivalent 11/19/2008 Influenza trivalent PF 12/05/2022 Influenza trivalent recombin ant (Flublok) 12/01/2023 MMR 03/09/1998,03/22/1994 Meningococcal ACWY conjugate , unspecified 01/21/2005 Poliovirus live oral trivalent OPV 03/09/1998,,1993 Tdap 09/08/2005 Family History Medical History Relation Comments Hyperlipidemia Father Skin Cancer Father Hypertension Maternal Grandmother Anxiety Disorder Paternal Grandfather Depression Paternal Grandfather Skin Cancer Paternal Grandfather Uterine Cancer Paternal Grandmother Relation Status Comments Father Maternal Grandmother Paternal Grandfather Paternal Grandmother Social History Tobacco Use Types Packs/Day Years Used Date Smoking Tobacco: Never Alcohol Use Standard Drinks/Week Comments Not Asked 0 (1 standard drink = 0.6 oz pur e alcohol) Estimated Date of Delivery Comme nts Yes 02/06/2025 Based on Ultraso und Sex and Gender Information Value Date Recorded Sex Assigned at Not on file Legal Sex Female 9:21 AM PST Gender Identity Not on file Sexual Orientation Not on file Last Filed Vital Signs Vital Sign Reading Time Taken Comments Blood Pressure 118/68 01/14/2025 2:07 PM PST Pulse 96 01/14/2025 2:07 PM PST Temperature 36.7 C (98.1 F) 01/12/2011 4:11 PM PST Respiratory Rate - - Oxygen Saturation 100% 01/14/2025 2:07 PM PST Inhaled Oxygen Concentration - - Weight 84.8 kg (187 lb) 01/14/2025 2:07 PM PST Height 170.2 cm (5' 7.01") 01/14/2025 2:07 PM PS T Body Mass Index 29.28 01/14/2025 2:07 PM PST Plan of Treatment Health Maintenance Due Date Last Done Comments Hepatitis C Screening 1993 Depression Screening (PHQ-2) 2005 HIV Screening 2008 DTaP, Tdap and Td Vaccines ( 5 - Td or Tdap) 09/09/2015 09/08/2005, 03/09/1998, 1993, Additional history exists Cervical Cancer Screening 2018 HPV Self Collect 2018 HPV 2018 Pap 2018 COVID-19 Vaccine (2024-2 6 season) 2024 12/01/2023, 12/09/2022, 12/08/2021, Additional history exists OB Rh(D) Incompatibility Screening 10/31/2024 OB Tdap Vaccine at 27-36 Weeks 11/07/2024 09/08/2005 Influenza Vaccine (#1) 2024 , 12/05/2022, 12/08/2021, Additional history exists OB GBS Screening at 36-37 Weeks 01/09/2025 Hepatitis B Vaccine Completed 07/10/2000, 1993, 1993, Additional history exists HPV Vaccine Completed 02/26/2008, 09/27, 07/17/2007 OB Gestational Diabetes Mellitus Screening Completed 01/14/2025, 01/14/2025, 11/29/2024 Hepatitis A Vaccine Aged Out No longe r eligible based on patient's age to complete this topic Meningococcal B Vaccine Aged Out No l onger eligible based on patient's age to complete this topic Pneumococcal Vaccine: Pediatrics (0-5 years) and At-Risk Patients (6-49 years) Aged Out No longer eligible based on patient's age to complete this topic RSV Vaccine (No Doses Required) Completed Procedures Procedure Name Priority Date/Time Associated Diagnosis Comments PREMANAGE Routine 01/26/2025 4:16 PM PST US OB FOLLOW UP Routine 01/14/2025 2:07 PM PST Supervision of high risk , antepartum (HCC) Preexisting hypertension complicating , antepartum (HCC) Velamentous insertion of umbilical cord, antepartum (HCC) Anomaly of placenta, antepartum (HCC) NONSTRESS TEST Routine 01/14/2025 1:00 PM PST Velamentous insertion of umbilical cord, antepartum (HCC) Preexisting hypertension complicating , antepartum (HCC) Oligohydramnios, antepartum, single or unspecified fetus (HCC) NONSTRESS TEST Routine 12/27/2024 10:30 AM PDT Velamentous insertion of umbilical cord, antepartum (HCC) Preexisting hypertension complicating , antepartum (HCC) Oligohydramnios, antepartum, single or unspecified fetus (HCC) US OB FOLLOW UP Routine 12/27/2024 9:37 AM PDT Vaginal bleeding in (HCC) Velamentous insertion of umbilical cord, antepartum (HCC) Supervision of high risk , antepartum (HCC) Preexisting hypertension complicating , antepartum (HCC) PROTEIN/CREATININE RATIO, RANDOM URINE Routine 11/29/2024 2:25 PM PDT COMPREHENSIVE METABOLIC PANEL Routine 11/29/2024 2:25 PM PDT US OB FOLLOW UP Routine 11/29/2024 1:23 PM PDT Vaginal bleeding in (HCC) Velamentous insertion of umbilical cord, antepartum (HCC) Supervision of high risk , antepartum (HCC) Preexisting hypertension complicating , antepartum (HCC) from Last 3 Months Results * PREMANAGE (01/26/2025 4:16 PM PST) 01/26/2025 4:[address] [facility] - 01/25/2025 1:28 AM PST Patient has visited an external emergency department or has been hospitalized outside of Medicine --MOST RECENT VISIT-- IP Admit:01/24/25 23:23 IP Discharge:01/26/25 14:00 Location:[facility] Attending Provider:[place] Encounter Type:Inpatient Major Class:Inpatient Chief Complaint:ROL Diagnosis: Velamentous insertion of umbilical cord, third trimester Velamentous insertion of umbilical cord, unspecified trimester Supervision of high risk , unspecified, third trimester False labor, unspecified Full-term premature rupture of membranes, onset of labor within 24 hours of rupture 38 weeks gestation of Other malformation of placenta, unspecified trimester Essential (primary) hypertension Other malformation of placenta, third trimester Unspecified pre-existing hypertension complicating , unspecified trimester Abnormal glucose complicating Gestational diabetes mellitus in , diet controlled Velamentous insertion of umbilical cord, unspecified trimester Abnormal glucose complicating Other malformation of placenta, unspecified trimester Supervision of high risk , unspecified, third trimester Essential (primary) hypertension False labor, unspecified Gestational diabetes mellitus in , diet controlled Full-term premature rupture of membranes, onset of labor within 24 hours of rupture 38 weeks gestation of Other malformation of placenta, third trimester Velamentous insertion of umbilical cord, third trimester Unspecified pre-existing hypertension complicating , unspecified trimester ED/UCC VISIT TRACKING (3 MO.) Visit Date Location [facility] Type Dx/Complaint -------- ------- ---- INPATIENT VISIT TRACKING (1 MO.) Visit Date Location [facility] Type Dx/Complaint -------- ------- ---- [facility] -38 weeks gestation of -38 weeks gestation of -Abnormal glucose complicating -Abnormal glucose complicating -Essential (primary) hypertension -Essential (primary) hypertension -False labor, unspecified -False labor, unspecified -Full-term premature rupture of membranes, onset of labor within 24 hours of rupture -Full-term premature rupture of membranes, onset of labor within 24 hours of rupture -Gestational diabetes mellitus in , diet controlled -Gestational diabetes mellitus in , diet controlled -Other malformation of placenta, third trimester -Other malformation of placenta, third trimester -Other malformation of placenta, unspecified trimester -Other malformation of placenta, unspecified trimester -Supervision of high risk , unspecified, third trimester -Supervision of high risk , unspecified, third trimester -Unspecified pre-existing hypertension complicating , unspecified trimester -Unspecified pre-existing hypertension complicating , unspecified trimester -Velamentous insertion of umbilical cord, third trimester -Velamentous insertion of umbilical cord, third trimester -Velamentous insertion of umbilical cord, unspecified trimester -Velamentous insertion of umbilical cord, unspecified trimester ED VISIT COUNT (12 MO.) Visits Location ------ --------- 0 Total Note: Visits indicate total known visits. --CARE GUIDELINES-- (Below are the most recent care guidelines entered by a Medicine care provider in [facility]. If Medicine guidelines do not exist in [facility], the most recent care guideline entered by an external hospital care provider is displayed.) [facility] has no Care Guidelines for this patient. Security Events No recent Security Events currently on file --CARE PROVIDERS-- CARE PROVIDERS Name Phone Type Service Dates ---- ----- ---- JACEY LUNA Physician Novelty Printing Machine Operator: Medical Unknown - Current Procedure Note EXTERNAL ATTENDING PHYSICIAN - 01/26/2025 Patient has visited an external emergency department or has beenhospitalized outside of Medicine --MOST RECENT VISIT-- IP Admit:01/24/25 23:23 IP Discharge:01/26/25 14:00 Location:[facility] Attending Provider:[place] Encounter Type:Inpatient Major Class:Inpatient Chief Complaint:ROL Diagnosis: Velamentous insertion of umbilical cord, third trimester Velamentous insertion of umbilical cord, unspecified trimester Supervision of high risk , unspecified, third trimester False labor, unspecified Full-term premature rupture of membranes, onset of labor within 24 hoursof rupture 38 weeks gestation of Other malformation of placenta, unspecified trimester Essential (primary) hypertension Other malformation of placenta, third trimester Unspecified pre-existing hypertension complicating , unspecifiedtrimester Abnormal glucose complicating Gestational diabetes mellitus in , diet controlled Velamentous insertion of umbilical cord, unspecified trimester Abnormal glucose complicating Other malformation of placenta, unspecified trimester Supervision of high risk , unspecified, third trimester Essential (primary) hypertension False labor, unspecified Gestational diabetes mellitus in , diet controlled Full-term premature rupture of membranes, onset of labor within 24 hoursof rupture 38 weeks gestation of Other malformation of placenta, third trimester Velamentous insertion of umbilical cord, third trimester Unspecified pre-existing hypertension complicating , unspecifiedtrimester ED/UCC VISIT TRACKING (3 MO.) Visit Date Location [facility] Type Dx/Complaint -------- ------- ---- INPATIENT VISIT TRACKING (1 MO.) Visit Date Location [facility] TypeDx/Complaint -------- ------- 01/24/2025 23:23 [facility] -38 weeks gestation of -38 weeks gestation of -Abnormal glucose complicating -Abnormal glucose complicating -Essential (primary) hypertension -Essential (primary) hypertension -False labor, unspecified -False labor, unspecified -Full-term premature rupture of membranes, onset of labor within 24 hours of rupture -Full-term premature rupture of membranes, onset of labor within 24 hours of rupture -Gestational diabetes mellitus in , diet controlled -Gestational diabetes mellitus in , diet controlled -Other malformation of placenta, third trimester -Other malformation of placenta, third trimester -Other malformation of placenta, unspecified trimester -Other malformation of placenta, unspecified trimester -Supervision of high risk , unspecified, third trimester -Supervision of high risk , unspecified, third trimester -Unspecified pre-existing hypertension complicating , unspecified trimester -Unspecified pre-existing hypertension complicating , unspecified trimester -Velamentous insertion of umbilical cord, third trimester -Velamentous insertion of umbilical cord, third trimester -Velamentous insertion of umbilical cord, unspecified trimester -Velamentous insertion of umbilical cord, unspecified trimester ED VISIT COUNT (12 MO.) Visits Location ------ --------- 0 Total Note: Visits indicate total known visits. --CARE GUIDELINES-- (Below are the most recent care guidelines entered by a Medicine careprovider in [facility]. If Medicine guidelines do not exist in [facility], the mostrecent care guideline entered by an external hospital care provider isdisplayed.) [facility] has no Care Guidelines for this patient. Security Events No recent Security Events currently on file --CARE PROVIDERS-- CARE PROVIDERS Name Phone TypeService Dates ---- ----- JACEY LUNA Unknown Physician Novelty Printing Machine Operator: Sky - Current us External Attending Physician FRANCISCA Davis al Result [facility] * OB Follow Up (01/14/2025 2:07 PM PST) Only the most recent of3 resultswithin the time period is included. Anatomical Region Laterality Modality Uterus N/A Ultrasound 01/14/2025 1:43 PM PST Impressions 01/14/2025 2:09 PM PST ========= Indication: Vaginal bleeding, Placental hematoma, Bilobed placenta, velamentous CI, Rt Adnexal cyst 8 x 5 x 7 cm, Hx PP Hemorrhage, HTN, GDMA1, Low TALAT Exam: Growth Dating: CHARITY = 02/06/2025 now 36w5d Average ultrasound age = 38w0d Normal Growth EFW = 3228 (75%) Limited survey No Structural abnormalities found Normal TALAT = 8.3 cm, MVP = 4.1 cm (previously 6.5 and 2.7 cm) Bi-Lobed Placenta, Anterior and Left lateral connected by small tissue bridge, No previa; 3VC Velamentous Cord Origin between the two lobes, far away from the internal cervical os (NO vasa previa) Hematoma and placental shaffer not seen due to limited resolution from Gestational age Cephalic presentation; Genitalia appears: male Maternal Adnexa not visualized Cosme Cortez Attending Delma Orosco Financial Aid Administrator I have personally reviewed the images and agree with the report (or as edited). Narrative 01/14/2025 2:09 PM PST Indication ======== follow up growth. Anatomy completed on: 11/29 Method ====== Follow up 2nd/3rd trimester obstetrical ultrasound. View: Satisfactory view. Growth Overview Exam date GA BPD (mm) HC (mm) AC (mm) FL (mm) HL (mm) EFW (g) 10/29/2024 25w 5d 69.6 96% 254.2 85% 220.6 66% 49 60% 45.6 81% 970 79% 11/29/2024 30w 1d 83.9 >99% 300.7 90% 264.9 60% 58.6 48% 1703 71% 12/27/2024 34w 1d 94 >99% 328 85% 305 64% 68 62% 2632 76% 01/14/2025 36w 5d 95.7 98% 337.1 71% 332.3 74% 72.3 56% 3228 75% ========= Sheikh . Number of fetuses: 1 Dating ====== GA by prior assessment 36 w + 5 d CHARITY by prior assessment: 02/06/2025 Ultrasound examination on: 01/14/2025 GA by U/S based upon: AC, BPD, Femur, HC GA by U/S 38 w + 0 d CHARITY by U/S: 01/28/2025 Assigned: based on stated CHARITY, selected on 10/29/2024 Assigned GA 36 w + 5 d Assigned CHARITY: 02/06/2025 General Evaluation Cardiac activity present. FHR 135 bpm. movements: visualized. Presentation: cephalic Placenta: Placental site: Bi-lobed , anterior and left lateral Umbilical cord: Insertion site: Known velamentous insertion Amniotic fluid: Amount of AF: normal. MVP 4.1 cm. TALAT 8.3 cm. Q1 4.1 cm, Q2 2.4 cm, Q3 1.8 cm, Q4 0.0 cm Biometry Standard BPD 95.7 mm 39w 1d 98% OFD 115.9 mm HC 337.1 mm 38w 4d 71% AC 332.3 mm 37w 1d 74% Femur 72.3 mm 37w 0d 56% EFW 3,228 g 75% EFW (lb) 7 lb EFW (oz) 2 oz EFW by: Hadlock ([id number]) Extended Machine Turner 7.3 mm Urinary Tract Rt Kidney long 41.4 mm 41% Lt Kidney long 40.1 mm 30% Extremities / Bony Struc FL / HC 0.21 Other Structures FHR 135 bpm Anatomy Lateral ventricles: normal 4-chamber view: normal RVOT view: normal LVOT view: normal Stomach: normal Kidneys: normal Bladder: normal Follow-up ======== See Maternal- Medicine Consultation Procedure Note Cosme Cortez MD - 01/14/2025 Indication ======== follow up growth. Anatomy completed on: 11/29 Method ====== Follow up 2nd/3rd trimester obstetrical ultrasound. View: Satisfactoryview. Growth Overview Exam date GA BPD (mm) HC (mm)AC (mm) FL (mm) HL (mm) EFW (g) 10/29/2024 25w 5d 69.6 96% 254.2 85%220.6 66% 49 60% 45.6 81% 970 79% 11/29/2024 30w 1d 83.9 >99% 300.7 90%264.9 60% 58.6 48% 202498% 12/27/2024 34w 1d 94 >99% 328 85%305 64% 68 62% 636782% 01/14/2025 36w 5d 95.7 98% 337.1 71%332.3 74% 72.3 56% 151524% ========= Sheikh . Number of fetuses: 1 Dating ====== GA by prior w + 5 d CHARITY by prior assessment:02/06/2025 Ultrasound examination on:01/14/2025 GA by U/S based upon:AC, BPD, Femur, HC GA by U/S38 w + 0 d CHARITY by U/S:01/28/2025 Assigned:based on stated CHARITY, selected on 10/29/2024 Assigned GA36 w + 5 d Assigned CHARITY:02/06/2025 General Evaluation Cardiac activity present. FHR 135 bpm. movements: visualized.Presentation: cephalic Placenta: Placental site: Bi-lobed , anterior and left lateral Umbilical cord: Insertion site: Known velamentous insertion Amniotic fluid: Amount of AF: normal. MVP 4.1 cm. TALAT 8.3 cm. Q1 4.1 cm,Q2 2.4 cm, Q3 1.8 cm, Q4 0.0 cm Biometry Standard BPD95.7 mm39w 1d 98% HCH314.9 mm HC337.1 mm38w 4d 71% AC332.3 mm37w 1d 74% Femur72.3 mm37w 0d 56% EFW3,228 g 75% EFW (lb)7 lb EFW (oz)2 oz EFW by:Hadlock ([id number]) Extended Vp7.3 mm Urinary Tract Rt Kidney long41.4 mm 41% Lt Kidney long40.1 mm 30% Extremities / Bony Struc FL / HC0.21 Other Structures QFR936 bpm Anatomy Lateral ventricles:normal 4-chamber view:normal RVOT view:normal LVOT view:normal Stomach:normal Kidneys:normal Bladder:normal Follow-up ======== See Maternal- Medicine Consultation IMPRESSION ========= Indication: Vaginal bleeding, Placental hematoma, Bilobed placenta,velamentous CI, Rt Adnexal cyst 8 x 5 x 7 cm, Hx PP Hemorrhage, HTN,GDMA1, Low TALAT Exam: Growth Dating: CHARITY = 02/06/2025 now 36w5d Average ultrasound age = 38w0d Normal Growth EFW = 3228 (75%) Limited survey No Structural abnormalities found Normal TALAT = 8.3 cm, MVP = 4.1 cm (previously 6.5 and 2.7 cm) Bi-Lobed Placenta, Anterior and Left lateral connected by small tissuebridge, No previa; 3VC Velamentous Cord Origin between the two lobes, far away from the internalcervical os (NO vasa previa) Hematoma and placental shaffer not seen due to limited resolution fromGestational age Cephalic presentation; Genitalia appears: male Maternal Adnexa not visualized Cosme Cortez Attending Delma Schumacheronographer I have personally reviewed the images and agree with the report (or asedited). us Cosme Cortez MD IMG OB US PROCEDURES Final Result * NONSTRESS TEST (01/14/2025 1:00 PM PST) Narrative GENERIC RESULTING AGENCY - 01/14/2025 1:00 PM PST Cosme Cortez MD 01/14/2025 2:01 PM Nonstress Test Performed by: Delma Isaacs RN Authorized by: Cosme Cortez MD Natalie Chen, a at 36w5d with an CHARITY of 02/06/2025, by Ultrasound, was seen at [facility] for a nonstress test. Nonstress Test: Reason for NST: Hypertension;Other (Comment) (abnormal placenta. Velamentous cord) Date of Service: 01/14/25 Start Time: 1301 End Time: 1324 Baseline: 125 BPM Variability: Moderate Accelerations: Present 15x15 bpm Decelerations: Variable Acoustic Stimulator: Yes (x 1 at 1317) Uterine Irritability: No Contractions: Irregular Minutes Between Contractions: 1 in 23 minutes Interpretation: Nonstress Test Interpretation: Reactive Disposition/Follow Up Plan: NST every 3-4 days Comments: US and consult with Dr Cortez to follow NST Education: Patient Education: Procedure explained;Kick count/ movement;When to notify provider;Follow up OB Interventions: Notification: Provider Notification Provider Name/Title: dr Cortez Method of Notification: Phone Request: Evaluate - remote Pre-Eclampsia Evaluation: us Cosme Cortez MD IN CLINIC/BEDSIDE ORDERABL ES Final Result GENERIC RESULTING AGENCY * NONSTRESS TEST (12/27/2024 10:30 AM PDT) Narrative GENERIC RESULTING AGENCY - 12/27/2024 10:30 AM PDT Cosme Cortez MD 12/27/2024 10:13 AM Nonstress Test Performed by: Delma Isaacs RN Authorized by: Cosme Cortez MD Natalie Chen, a at 34w1d with an CHARITY of 02/06/2025, by Ultrasound, was seen at [facility] for a nonstress test. Nonstress Test: Reason for NST: Hypertension;Oligohydramnios Date of Service: 12/27/24 Start Time: 0940 End Time: 1000 Baseline: 135 BPM Variability: Moderate Accelerations: Present 15x15 bpm Decelerations: None Acoustic Stimulator: No Uterine Irritability: No Contractions: Irregular Minutes Between Contractions: 946 - pt was leaning forward to get something out of her bag on floor. Appears to be a contraction, but more likely pressure on toco from position change. Multiple Births: No Interpretation: Nonstress Test Interpretation: Reactive Disposition/Follow Up Plan: NST every 3-4 days Education: Patient Education: Procedure explained;Kick count/ movement;When to notify provider;Follow up OB Interventions: Notification: Provider Notification Provider Name/Title: Dr Cortez Method of Notification: Phone Request: Evaluate - remote Pre-Eclampsia Evaluation: Cosme Cortez MD IN CLINIC/BEDSIDE ORDERABL ES Final Result Performing Organization Address City/[facility] Co de Phone Number GENERIC RESULTING AGENCY * Protein/Creatinine Ratio, Random Urine (11/29/2024 2:25 PM PDT) Protein (Total), Urine <4 mg/dL 11/30/2024 12:34 AM PDT [facility] Creatinine/Un it, Urine 6 mg/dL 11/30/2024 12:34 AM PDT [facility] Protein/Creat inine Ratio Unable to calculate. Urine creatinine concentration is too low for accurate measurement. Consider repeat testing with a first morning urine to obtain a more concentrated specimen. <0.2 11/30/2024 12:34 AM PDT [facility] Urine 11/29/2024 2:25 PM PDT 11/29/2024 10:41 PM PDT Cosme Cortez MD LAB URINE ORDERABLES Final Result Performing Organization Address City/[facility]/ZIP Co de Phone Number [facility] [address] [facility] [place] [id number] [place] [address] [facility] Dept of [facility] Med [address] [facility] [place] [id number] [place] [address] * (ABNORMAL) Comprehensive Metabolic Panel (11/29/2024 2:25 PM PDT) Sodium 137 135 - 145 meq/L 11/29/2024 11:47 PM PDT [facility] Potassium 4.1 3.6 - 5.2 meq/L 11/29/2024 11:47 PM PDT [facility] Med Chloride 105 98 - 108 meq/L 11/29/2024 11:47 PM PDT [facility] Carbon Dioxide, Total 24 22 - 32 meq/L 11/29/2024 11:47 PM PDT [facility] Med Anion Gap 8 4 - 12 11/29/2024 11:47 PM PDT [facility] Glucose 78 62 - 125 mg/dL 11/29/2024 11:47 PM PDT [facility] Urea Nitrogen 12 8 - 21 mg/dL 11/29/2024 11:47 PM PDT [facility] Creatinine 0.34(L) 0.38 - 1.02 mg/dL 11/29/2024 11:47 PM PDT [facility] Med Protein (Total) 5.8(L) 6.0 - 8.2 g/dL 11/29/2024 11:47 PM PDT [facility] Dept [facility] Lab Med Albumin 3.6 3.5 - 5.2 g/dL 11/29/2024 11:47 PM PDT [facility] Bilirubin (Total) 0.3 0.2 - 1.3 mg/dL 11/29/2024 11:47 PM PDT [facility] Calcium 8.9 8.9 - 10.2 mg/dL 11/29/2024 11:47 PM PDT [facility] AST (GOT) 14 9 - 38 U/L 11/29/2024 11:47 PM PDT [facility] Med Alkaline Phosphatase (Total) 87 25 - 100 U/L 11/29/2024 11:47 PM PDT [facility] ALT (GPT) 8 7 - 33 U/L 11/29/2024 11:47 PM PDT [facility] Dept of Lab Med eGFR by CKD-EPI 2020 >60 >59 mL/min/1.7 3_m2 11/29/2024 11:47 PM PDT [facility] Lab Med Serum 11/29/2024 2:25 PM PDT 11/29/2024 10:41 PM PDT Cosme Cortez MD LAB BLOOD ORDERABLES Final Result [facility] [address] [place] [id number] [place] [address] [facility] Dept of Lab Med [address] [facility] [place] [id number] [place] [address] from Last 3 Months Insurance [facility] OUT [facility] AREA 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
== END 2025-01-26 14:00 | disposition home or self-care (01) | DRG 806 ==
LOC: WFO 22:56 → FBP 23:00
PROVIDERS: ADMIT Obstetrics & Gynecology; ATTEND Obstetrics & Gynecology